=== PATIENT | female | born 2000 | race Two or more races ===

== ENCOUNTER 2024-05-08 17:42 | Outpatient (CLI) | payer SELFPAY ==
[2024-05-08] VITALS (7 sets, daily range): BP systolic 120–133; BP diastolic 69–80; PULSE 91–98
[2024-05-08 18:39] LABS: Basophils Percent Auto 0.3 % (0.2-1.2); Eosinophils Percent Auto 0.4 % (0-4.4); Hematocrit 34.1 % (37.0-47.0); Hemoglobin 11.6 g/dL (12.0-15.0); Immature Granulocyte Absolute 0.02 K/mm3 (0.00-0.031); Immature Granulocyte Percent A 0.3 % (0-0.5); Lymphocytes Absolute Auto 1.73 K/mm3 (0.9-3.2); Lymphocytes Percent Auto 25.2 % (18.3-44.2); Mean Corpuscular Hemoglobin 31.2 pg (26-34); Mean Corpuscular Volume 91.7 fl (80-100); Mean Platelet Volume 11.8 fl (7.4-10.4); Monocytes Absolute Auto 0.4 K/mm3 (0.1-0.6); Monocytes Percent Auto 5.8 % (2.6-8.5); Neutrophils Absolute Auto 4.7 K/mm3 (1.3-6.7); Platelet Count Result 177 k/mm3 (150-375); Red Blood Count 3.72 M/mm3 (4.2-5.4); Red Cell Distribution Width 13.5 % (11.5-14.5); White Blood Count 6.9 K/mm3 (4.5-10.0)
[2024-05-08 18:43] LABS: Add Urine Microscopic? YES; Appearance Urine Cloudy (Clear); Bacteria Urine Rare /hpf; Bilirubin Urine Negative (Negative); Blood Urine Negative (Negative); Color Urine Yellow (Yellow); Glucose Urine UA Negative (Negative); Ketones Urine 3+ mg/dL (Negative); Leukocyte Esterase Ur 2+ LEU/UL (Negative); Nitrate Urine Negative (Negative); Non Pathogenic Casts 0-2; Protein Urine Negative (Negative); RBC Urine 0-2 /hpf (0-2); Specific Grav Ur 1.011 (1.001-1.035); Squamous Epithelial Cell Urine Moderate /hpf (Few); WBC Urine 21-50 /hpf (0-3); pH Urine 6.5 (5.0-9.0)
[2024-05-08 18:52] LABS: Alanine Aminotransferase 23 U/L (6-35); Albumin Level 3.9 g/dL (3.5-5.1); Alkaline Phosphatase 112 U/L (38-126); Anion Gap 12 mmol/L (4-12); Aspartate Amino Transferase 29 U/L (14-36); Bilirubin,Total 0.5 mg/dL (0.2-1.3); Blood Urea Nitrogen 4 mg/dL (7-17); Calcium 9.2 mg/dL (8.4-10.2); Carbon Dioxide 17 mmol/L (22-30); Chloride 106 mmol/L (98-107); Creatinine Urine 61.9 mg/dL; Estimated Glomerular Filt Rate > 60; Glucose 81 mg/dL (65-110); Potassium 3.6 mmol/L (3.4-5.0); Sodium 135 mmol/L (137-145); Total Protein Urine Random 9 mg/dL; Ur Ttl Prot Creatinine Ratio 0.15 mg/mg (0-0.20); Uric Acid 3.5 mg/dL (2.5-7.5)
== END 2024-05-08 19:45 | disposition home or self-care (01) ==
LOC: ANHOBOP 17:50 → ANHLDR 20:31
PROVIDERS: PCP Obstetrics & Gynecology; Visit Provider Obstetrics & Gynecology
DX: O13.9 Gestational [pregnancy-induced] hypertension without significant proteinuria, unspecified trimester (principal); Z3A.00 Weeks of gestation of pregnancy not specified
CPT/HCPCS: 36415; 59025; 80053; 81001; 82570; 84156; 84550; 85025; 99199

== ENCOUNTER 2024-05-23 13:29 | Outpatient (RCR) | payer BC, SELFPAY ==
--- NOTE | ~2024-05-23 | US_ITS ---
EXAMINATION: US OB BPP wo non-stress DATE: 05/23/2024 14:54 INDICATION: Hypertension in . Third trimester. TECHNIQUE: Real-time pelvic ultrasound was performed. COMPARISON: None. FINDINGS: There is a single living fetus in vertex presentation. The placenta is on the left. heart rate is 137 beats per minute (bpm). The amniotic fluid index is 12.7 cm which is normal. Biophysical profile performed by the technologist: breathing (30 sec sustained breathing in 30 minutes): 2 out of 2 movement (3 gross body movements in 30 minutes): 2 out of 2 tone (one episode of wfifrir-sumncedqy-ohbclpj limb movement): 2 out of 2 Amniotic fluid pocket (2 cm): 2 out of 2 Total score: 8 out of 8 IMPRESSION: 1. Single living fetus in vertex presentation. 2. Biophysical profile 8 out of 8. Reviewed, dictated and finalized at location A. MASSAGE THERAPIST
[2024-05-23 14:09] LABS: Basophils Percent Auto 0.4 % (0.2-1.2); Eosinophils Percent Auto 0.4 % (0-4.4); Hematocrit 33.8 % (37.0-47.0); Hemoglobin 11.4 g/dL (12.0-15.0); Immature Granulocyte Absolute 0.02 K/mm3 (0.00-0.031); Immature Granulocyte Percent A 0.4 % (0-0.5); Lymphocytes Absolute Auto 1.11 K/mm3 (0.9-3.2); Lymphocytes Percent Auto 19.9 % (18.3-44.2); Mean Corpuscular HGB Conc 33.7 g/dl (32-36); Mean Corpuscular Hemoglobin 31.1 pg (26-34); Mean Corpuscular Volume 92.3 fl (80-100); Mean Platelet Volume 12.3 fl (7.4-10.4); Monocytes Absolute Auto 0.4 K/mm3 (0.1-0.6); Monocytes Percent Auto 6.3 % (2.6-8.5); Neutrophils Absolute Auto 4.1 K/mm3 (1.3-6.7); Neutrophils Percent Auto 72.6 % (45.5-73.1); Platelet Count Result 171 k/mm3 (150-375); Red Blood Count 3.66 M/mm3 (4.2-5.4); Red Cell Distribution Width 13.7 % (11.5-14.5); White Blood Count 5.6 K/mm3 (4.5-10.0)
[2024-05-23 14:20] LABS: Alanine Aminotransferase 20 U/L (6-35); Albumin Level 3.8 g/dL (3.5-5.1); Alkaline Phosphatase 147 U/L (38-126); Anion Gap 11 mmol/L (4-12); Aspartate Amino Transferase 26 U/L (14-36); Bilirubin,Total 0.6 mg/dL (0.2-1.3); Blood Urea Nitrogen 5 mg/dL (7-17); Calcium 9.4 mg/dL (8.4-10.2); Carbon Dioxide 21 mmol/L (22-30); Chloride 104 mmol/L (98-107); Estimated Glomerular Filt Rate > 60; Glucose 85 mg/dL (65-110); Potassium 3.7 mmol/L (3.4-5.0); Sodium 136 mmol/L (137-145); Uric Acid 4.2 mg/dL (2.5-7.5)
[2024-05-23 14:22] LABS: Add Urine Microscopic? YES; Appearance Urine Turbid (Clear); Bacteria Urine 4+ /hpf; Bilirubin Urine Negative (Negative); Blood Urine Non-Hemolyzed Trace (Negative); Color Urine Yellow (Yellow); Glucose Urine UA Negative (Negative); Ketones Urine Negative (Negative); Leukocyte Esterase Ur 3+ LEU/UL (Negative); Nitrate Urine Positive (Negative); Non Pathogenic Casts 0-2; Protein Urine 1+ mg/dL (Negative); Specific Grav Ur 1.015 (1.001-1.035); Squamous Epithelial Cell Urine Moderate /hpf (Few); WBC Urine >100 /hpf (0-3); pH Urine 6.5 (5.0-9.0)
[2024-05-23 14:28] LABS: Creatinine Urine 108.1 mg/dL; Total Protein Urine Random 52 mg/dL; Ur Ttl Prot Creatinine Ratio 0.48 mg/mg (0-0.20)
[2024-05-23 15:24] VITALS: BP 118/71; PULSE 98
== END 2024-06-15 07:46 | disposition home or self-care (01) ==
LOC: ANHOBOP 13:29
PROVIDERS: Visit Provider Obstetrics & Gynecology
DX: O13.9 Gestational [pregnancy-induced] hypertension without significant proteinuria, unspecified trimester (principal)
CPT/HCPCS: 36415; 59025; 76819; 80053; 81001; 82570; 84156; 84550; 85025

== ENCOUNTER 2024-05-25 10:01 | Outpatient (NON) | payer BC, SELFPAY ==
[2024-05-25 10:01] VITALS: BMI 33.2
[2024-05-25 10:38] LABS: Collection Time Urine 24 HOURS; Total Volume 24 Hour Urine 1900 ml
[2024-05-25 10:38] LABS: Total Volume 24 Hour Urine 1900 ml
[2024-05-25 10:45] LABS: Total Protein Urine 24 Hr 285 mg/24hr (28-141); Total Protein Urine Random 15 mg/dL
[2024-05-25 10:50] LABS: Creatinine Clearance Urine 219.1 ml/min (75-125); Patient Weight 170 Lbs; Serum Creat 0.45
== END 2024-05-25 10:02 | disposition home or self-care (01) ==
LOC: ANHOBOP 10:12
PROVIDERS: Visit Provider Obstetrics & Gynecology
DX: O13.9 Gestational [pregnancy-induced] hypertension without significant proteinuria, unspecified trimester (principal); Z3A.00 Weeks of gestation of pregnancy not specified
CPT/HCPCS: 81050; 82575; 84156

== ENCOUNTER 2024-05-30 02:00 | Inpatient (IN) | payer BC, SELFPAY ==
[2024-05-30] VITALS (243 sets, daily range): BP systolic 89–150; BP diastolic 34–131; PULSE 63–156; TEMP 36.6–38.8; O2SAT 83–100; BMI 28.4
[2024-05-30 02:33] LABS: Basophils Percent Auto 0.3 % (0.2-1.2); Eosinophils Percent Auto 0.7 % (0-4.4); Hematocrit 33.1 % (37.0-47.0); Hemoglobin 11.4 g/dL (12.0-15.0); Immature Granulocyte Absolute 0.01 K/mm3 (0.00-0.031); Immature Granulocyte Percent A 0.2 % (0-0.5); Lymphocytes Absolute Auto 1.93 K/mm3 (0.9-3.2); Lymphocytes Percent Auto 31.4 % (18.3-44.2); Mean Corpuscular HGB Conc 34.4 g/dl (32-36); Mean Corpuscular Hemoglobin 31.1 pg (26-34); Mean Corpuscular Volume 90.2 fl (80-100); Mean Platelet Volume 11.7 fl (7.4-10.4); Monocytes Absolute Auto 0.3 K/mm3 (0.1-0.6); Neutrophils Absolute Auto 3.8 K/mm3 (1.3-6.7); Neutrophils Percent Auto 62.4 % (45.5-73.1); Platelet Count Result 210 k/mm3 (150-375); Red Blood Count 3.67 M/mm3 (4.2-5.4); Red Cell Distribution Width 13.4 % (11.5-14.5); White Blood Count 6.1 K/mm3 (4.5-10.0)
[2024-05-30 02:45] LABS: Uric Acid 4.8 mg/dL (2.5-7.5)
[2024-05-30] MEDS: miSOPROStol 25 MCG TABLET 50 MCG BUCCAL (02:45)
--- NOTE | 2024-05-30 02:45 | LDADM ---
This patient, Jade Stewart, was admitted to Labor/Delivery/Recovery 107 on 05/30/24 at 02:00. Plans for labor, pain management and were discussed with patient. Patient/family oriented to hospital policies and general routines including ID bracelet, bed and alarms, visiting hours, pain management, procedures, bathroom and other care routines, personal items, smoking policy, room service/diet and guest tray routines, infant security routines, and visiting hours. Patient/Family are encouraged to report perceived risks to care and to ask questions if they do not understand what they are told or what they should do. See OBIX for further documentation.
[2024-05-30 03:00] LABS: Alanine Aminotransferase 35 U/L (6-35); Albumin Level 3.7 g/dL (3.5-5.1); Alkaline Phosphatase 160 U/L (38-126); Anion Gap 10 mmol/L (4-12); Aspartate Amino Transferase 36 U/L (14-36); Bilirubin,Total 0.6 mg/dL (0.2-1.3); Blood Urea Nitrogen 10 mg/dL (7-17); Calcium 8.9 mg/dL (8.4-10.2); Carbon Dioxide 18 mmol/L (22-30); Chloride 107 mmol/L (98-107); Estimated CRCL calculation 98 ml/min; Estimated Glomerular Filt Rate > 60; Glucose 104 mg/dL (65-110); Potassium 3.7 mmol/L (3.4-5.0); Sodium 135 mmol/L (137-145)
[2024-05-30 03:26] LABS: HIV 1/2 Ab P24 Ag Result Negative (Negative)
[2024-05-30 03:56] LABS: Rapid Plasma Reagin Non-Reactive (NonReactive)
[2024-05-30] MEDS: VANCOMYCIN 1,500 MG/NS 500 ML BAG 166 MG IVPB ×3 (04:45→21:14)
[2024-05-30] MEDS: diphenhydrAMINE HCl INJ 50 MG/ML VIAL 25 MG IV PUSH (04:45)
[2024-05-30] MEDS: OXYTOCIN 30 UNITS/NS 500 ML 30 UNITS/500 ML BAG 6 UNITS IV CONT (07:03)
[2024-05-30] MEDS: LACTATED RINGERS 1,000 ML 125 ML IV CONT ×4 (07:03→20:16)
--- NOTE | 2024-05-30 07:14 | PM.IMHP ---
H&P: HPI History of Present Illness Date/Time: 05/30/24 07:14 Chief Complaint: IOL Narrative: Jade is a 23yo who presented to routine care 05/29/24 and was found to have mild range BPs again; meeting criteria for GHTN. She denies symptoms of pre-eclampsia w/ severe features. She reports good movement. Her is complicated by: - Anemia; improved with oral iron - GBS positive, severe PCN allergy, on vanco - GHTN Review of Systems Constitutional: Constitutional: Denies chills, Denies fever(s) and Denies headache(s) Eyes: Eyes: Denies change in vision ENT: Denies headache(s) Cardiovascular: Cardiovascular: Denies chest pain and Denies dyspnea Respiratory: Respiratory: Denies dyspnea Genitourinary: Genitourinary: Denies abnormal vaginal bleeding and Denies vaginal discharge Neurologic: Denies headache(s) Psychiatric: Psychiatric: Denies anxiety and Denies depression [facility] Past Medical History Medical History Suppression of menses Social History Social History Smoking status: Former smoker Tobacco type: cigarettes and e-cigarettes/vaping Smokeless tobacco user: other Smoking end date: 07/17/23 Alcohol intake: never Substance use: never Substance use type: does not use Do You Feel Safe in your Home?: Yes Lack of Transportation: No Lack of Food: Never True Current Housing: I Have Housing Concerned About Future Housing: No Difficulty Paying Gas/Electric Bills: No Difficulty Paying for Meds: No Currently Unemployed: No Education: Associate Degree Difficulty w/ Childcare or Family Care: No Living arrangements: with family Gender identity (if verbalized by the patient): Female Sexual Orientation (if Verbalized by the Patient): Straight or Heterosexual Spiritual care concerns: Yes Meds Home Medications and Allergies Home Medications ?Medication ?Instructions ?Recorded ?Confirmed ?Type vits no.126-ferrous fum 1 tablet PO DAILY 10/26/23 05/29/24 History 28 mg iron-folic acid 800 mcg tablet (Classic ) ferrous sulfate 325 mg (65 mg 325 mg PO DAILY 03/27/24 05/29/24 History iron) tablet (Feosol) Allergies Allergy/AdvReac Type Severity Reaction Status Date / Time Penicillins Allergy Mild Hives Verified 05/29/24 16:52 Vital Signs Vital Signs - 24 hr 05/30/24 02:21 05/30/24 02:44 05/30/24 02:46 Temperature Pulse Rate 119 H 113 H Blood Pressure 138/83 128/73 Pulse Oximetry Oxygen Delivery Room Air 05/30/24 03:01 05/30/24 03:04 05/30/24 03:16 Temperature 98.3 F Pulse Rate 111 H 99 Blood Pressure 118/70 118/72 Pulse Oximetry Oxygen Delivery 05/30/24 03:31 05/30/24 03:46 05/30/24 04:16 Temperature Pulse Rate 94 95 96 Blood Pressure 121/77 122/67 111/61 Pulse Oximetry Oxygen Delivery 05/30/24 04:31 05/30/24 04:33 05/30/24 04:46 Temperature 99 F Pulse Rate 102 H 108 H Blood Pressure 114/58 L 118/62 Pulse Oximetry Oxygen Delivery 05/30/24 05:01 05/30/24 05:06 05/30/24 05:11 Temperature Pulse Rate 94 Blood Pressure 121/72 Pulse Oximetry 99 100 99 Oxygen Delivery 05/30/24 05:16 05/30/24 05:21 05/30/24 05:26 Temperature Pulse Rate Blood Pressure Pulse Oximetry 98 98 98 Oxygen Delivery 05/30/24 05:31 05/30/24 05:36 05/30/24 05:41 Temperature 98.3 F Pulse Rate 87 Blood Pressure 122/81 Pulse Oximetry 99 99 100 Oxygen Delivery 05/30/24 05:46 05/30/24 05:51 05/30/24 05:56 Temperature Pulse Rate Blood Pressure Pulse Oximetry 100 100 100 Oxygen Delivery 05/30/24 06:01 05/30/24 06:06 05/30/24 06:11 Temperature Pulse Rate 84 Blood Pressure 122/70 Pulse Oximetry 100 100 100 Oxygen Delivery Exam Const: General: cooperative, no acute distress and obese Nutritional Appearance: obese Orientation/consciousness: patient oriented x3 Resp: Effort & Inspection: normal respiratory effort Cardio: Rate: regular rate GI: GI Palp: No abdominal tenderness : Other: FHT's: 130's/ mod trupti/ + accels/ no decels - cat 1 TOCO: ctxs q2-3min Cervix: 60/-2 Membranes: AROM, clear 0730 Presentation: cephalic Skin: General skin exam: normal color Neuro: General: patient oriented x3 Extrem: General: normal to inspection Psych: Appearance: grossly normal Affect: normal affect Attitude: cooperative H&P: Results Labs Labs: Short CBC 05/30/24 Range/Units 02:26 WBC 6.1 (4.5-10.0) K/mm3 Hgb 11.4 L (12.0-15.0) g/dL Hct 33.1 L (37.0-47.0) % Plt Count 210 (150-375) k/mm3 BMP 05/30/24 02:26 Sodium 135 L Potassium 3.7 Chloride 107 Carbon Dioxide 18 L BUN 10 D Creatinine 0.70 Glucose 104 Calcium 8.9 Liver Function 05/30/24 Range/Units 02:26 Total Bilirubin 0.6 (0.2-1.3) mg/dL AST 36 (14-36) U/L ALT 35 (6-35) U/L Alkaline Phosphatase 160 H (38-126) U/L Albumin 3.7 (3.5-5.1) g/dL Assessment and Plan Assessment and plan (1) Gestational hypertension affecting first : Code(s): O13.9 - Gestational [-induced] hypertension without significant proteinuria, unspecified trimester Status: Acute Plan - Admitted overnight for medical IOL - s/p cytotec 50mcg x1 - Low dose pitocin per protocol - Continuous monitoring - Vanco 20mg/kg q8h - Anesthesia consult PRN pain
--- NOTE | 2024-05-30 08:06 | P.PNAN_ITS ---
Anes - Eval Pre Procedure Procedure: labor epidural Date/Time: 05/30/24 08:06 Preop Diagnosis: pain during labor Pre Op Diagnosis: IOL Patient Data Age: 23 Gender: F Height: 1.58 m Weight: 70.9 kg Last Vital Signs Temp 36.7 C 05/30/24 07:08 Pulse 102 H 05/30/24 08:01 BP 127/84 05/30/24 08:01 Pulse Ox 100 05/30/24 06:11 O2 Del Method Room Air 05/30/24 02:44 Allergies Allergy/AdvReac Type Severity Reaction Status Date / Time Penicillins Allergy Mild Hives Verified 05/29/24 16:52 Home Medications ?Medication ?Instructions ?Recorded ?Confirmed ?Type vits no.126-ferrous fum 1 tablet PO DAILY 10/26/23 05/29/24 History 28 mg iron-folic acid 800 mcg tablet (Classic ) ferrous sulfate 325 mg (65 mg 325 mg PO DAILY 03/27/24 05/29/24 History iron) tablet (Feosol) Laboratory Tests 05/30/24 02:26 WBC 6.1 K/mm3 (4.5-10.0) RBC 3.67 L M/mm3 (4.2-5.4) Hgb 11.4 L g/dL (12.0-15.0) Hct 33.1 L % (37.0-47.0) MCV 90.2 fl (80-100) MCH 31.1 pg (26-34) MCHC 34.4 g/dl (32-36) RDW 13.4 % (11.5-14.5) Plt Count 210 k/mm3 (150-375) MPV 11.7 H fl (7.4-10.4) Immature Gran % (Auto) 0.2 % (0-0.5) Neut % (Auto) 62.4 % (45.5-73.1) Lymph % (Auto) 31.4 % (18.3-44.2) [place] % (Auto) 5.0 % (2.6-8.5) Eos % (Auto) 0.7 % (0-4.4) Baso % (Auto) 0.3 % (0.2-1.2) Lymph # (Auto) 1.93 K/mm3 (0.9-3.2) [place] # (Auto) 0.3 K/mm3 (0.1-0.6) Eos # (Auto) 0.0 K/mm3 (0-0.3) Baso # (Auto) 0.0 K/mm3 (0.0-0.1) Abs Immat Gran (auto) 0.01 K/mm3 (0.00-0.031) Absolute Neuts (auto) 3.8 K/mm3 (1.3-6.7) Absolute Nucleated RBC 0.000 K/mm3 (0.0-0.012) Nucleated RBC % 0.0 % (0.0-0.2) Sodium 135 L mmol/L (137-145) Potassium 3.7 mmol/L (3.4-5.0) Chloride 107 mmol/L (98-107) Carbon Dioxide 18 L mmol/L (22-30) Anion Gap 10 mmol/L (4-12) BUN 10 D mg/dL (7-17) Creatinine 0.70 mg/dL (0.7-1.0) Estim Creat Clear Calc 98 ml/min Estimated GFR > 60 (59 - ) Glucose 104 mg/dL (65-110) Uric Acid 4.8 mg/dL (2.5-7.5) Calcium 8.9 mg/dL (8.4-10.2) Total Bilirubin 0.6 mg/dL (0.2-1.3) AST 36 U/L (14-36) ALT 35 U/L (6-35) Alkaline Phosphatase 160 H U/L (38-126) Total Protein 7.0 g/dL (6.3-8.2) Albumin 3.7 g/dL (3.5-5.1) RPR Non-reactive (NonReactive) HIV 1&2 Ab/P24 Ag 4thGn Negative (Negative) Blood Type A Positive Antibody Screen Negative Patient hx anesthesia problems: none Family hx anesthesia problems: none Results Review: All pre-operative results and documents have been reviewed as part of the pre- operative evaluation. FORMERLY [facility], [facility] Past Medical History Medical History (Updated 05/30/24 @ 08:07 by Margie Reeder CRNA) IUP (intrauterine ), incidental Obesity Suppression of menses Social History Social History Smoking status: Former smoker Tobacco type: cigarettes and e-cigarettes/vaping Smokeless tobacco user: other Smoking end date: 07/17/23 Alcohol intake: never Substance use: never Substance use type: does not use Do You Feel Safe in your Home?: Yes Lack of Transportation: No Lack of Food: Never True Current Housing: I Have Housing Concerned About Future Housing: No Difficulty Paying Gas/Electric Bills: No Difficulty Paying for Meds: No Currently Unemployed: No Education: Associate Degree Difficulty w/ Childcare or Family Care: No Living arrangements: with family Gender identity (if verbalized by the patient): Female Sexual Orientation (if Verbalized by the Patient): Straight or Heterosexual Spiritual care concerns: Yes Exam Day of Procedure 05/30/24 08:06
[2024-05-30] MEDS: fentaNYL CITRATE INJ (*CRX) 100 MCG/2 ML VIAL IV PUSH (08:44)
--- NOTE | 2024-05-30 12:24 | PM.OBPNLAB ---
Pain Control Date/time seen: 05/30/24 12:24 Pain control: epidural Pelvic Exam Dilation (cm): 4 (.5) Effacement (%): 80 station: -2 Amniotic membrane status: Ruptured Contractions Monitor mode: Internal Contraction frequency: 2 (-3) Contraction pattern: Regular Status status: Category l Assessment and Plan Pitocin rate (mU/min): 2 Assessment: induction ongoing Plan: continuous present management Comments: - IUPC placed on this exam - continue pitocin augmentation - continue vanco for GBS - BPs normal to moderate range
[2024-05-30] MEDS: ONDANSETRON INJ 4 MG/2 ML VIAL IV PUSH (16:58)
[2024-05-30] MEDS: ACETAMINOPHEN 500 MG TABLET 1000 MG PO (17:16)
[2024-05-30] MEDS: GENTAMICIN SULFATE INJ 355 MG in DEXTROSE 5% 100 ML 100 MG IVPB (17:21)
[2024-05-30] MEDS: diphenhydrAMINE HCl INJ 50 MG/ML VIAL IV PUSH (17:28)
--- NOTE | 2024-05-30 17:29 | PM.OBPNLAB ---
Pain Control Date/time seen: 05/30/24 17:29 Pain control: epidural Comments: 102 temp Pelvic Exam Dilation (cm): 7 Effacement (%): 80 station: -2 Amniotic membrane status: Ruptured Contractions Monitor mode: Internal Contraction frequency: 2 (-3) Contraction pattern: Regular Status status: Category ll Assessment and Plan Pitocin rate (mU/min): 16 Assessment: active labor Comments: - Pt has 102 F temp and tachycardia; chorio - continue vanco 20mg/kg q8h, will start gentamicin 5mg/kg q24h - tylenol 1000mg PO once - fluid bolus 500cc - continue pitocin per protocol - UOP adequate - cervix edematous; will give benadryl 50mg
[2024-05-30] MEDS: CLINDAMYCIN 900 MG/D5W 50 ML 900 MG/50 ML PIGGYBACK 50 MG IVPB (19:11)
[2024-05-30 20:03] LABS: Basophils Percent Auto 0.2 % (0.2-1.2); Hematocrit 36.6 % (37.0-47.0); Hemoglobin 12.5 g/dL (12.0-15.0); Immature Granulocyte Absolute 0.06 K/mm3 (0.00-0.031); Immature Granulocyte Percent A 0.5 % (0-0.5); Lymphocytes Absolute Auto 1.04 K/mm3 (0.9-3.2); Lymphocytes Percent Auto 8.2 % (18.3-44.2); Mean Corpuscular HGB Conc 34.2 g/dl (32-36); Mean Corpuscular Volume 90.8 fl (80-100); Monocytes Absolute Auto 0.7 K/mm3 (0.1-0.6); Monocytes Percent Auto 5.2 % (2.6-8.5); Neutrophils Absolute Auto 10.9 K/mm3 (1.3-6.7); Neutrophils Percent Auto 85.9 % (45.5-73.1); Platelet Count Result 177 k/mm3 (150-375); Red Blood Count 4.03 M/mm3 (4.2-5.4); Red Cell Distribution Width 13.6 % (11.5-14.5); White Blood Count 12.7 K/mm3 (4.5-10.0)
[2024-05-30 20:13] LABS: Alanine Aminotransferase 45 U/L (6-35); Albumin Level 3.6 g/dL (3.5-5.1); Alkaline Phosphatase 170 U/L (38-126); Anion Gap 14 mmol/L (4-12); Aspartate Amino Transferase 48 U/L (14-36); Bilirubin,Total 0.9 mg/dL (0.2-1.3); Blood Urea Nitrogen 10 mg/dL (7-17); Calcium 9.1 mg/dL (8.4-10.2); Carbon Dioxide 14 mmol/L (22-30); Chloride 107 mmol/L (98-107); Estimated CRCL calculation 70 ml/min; Estimated CRCL calculation 72 ml/min; Estimated Glomerular Filt Rate > 60; Glucose 88 mg/dL (65-110); Potassium 3.8 mmol/L (3.4-5.0); Sodium 135 mmol/L (137-145)
[2024-05-30 20:38] LABS: Influenza A QL RT-PCR Negative (Negative); Influenza B QL RT-PCR Negative (Negative); RSV RNA, RT-PCR Negative (Negative); SARS-CoV-2 RNA PCR Negative (Negative)
--- NOTE | 2024-05-30 20:47 | PM.OBPNLAB ---
Pain Control Date/time seen: 05/30/24 20:47 Pain control: epidural Pelvic Exam Dilation (cm): 9 Effacement (%): 80 station: -1 Amniotic membrane status: Ruptured Contractions Monitor mode: Internal Contraction frequency: 2 (-4) Contraction pattern: Regular Status status: Category l Assessment and Plan Pitocin rate (mU/min): 0 Assessment: active labor Comments: - pt has been having tachycardia due to maternal fever - s/p gentamicin 5mg/kg + continuing vancomycin 20mg/kg q8h -- clindamycin 900mg was added as maternal temp/ tachy was not improving - fluid bolus given; urine output >100cc/hr - but maternal temp is now normal and FHTs category 1 (150's/mod trupti/ + accels/ no decels) - labs repeated; mild elevation in LFTs, Cr 1.0, WBC 12.7, maternal temp <100F - urine culture sent - covid/flu/rsv negative - will restart pitocin as she has been 9cm for the last 2 hours (contractions not adequate)
[2024-05-31] VITALS (92 sets, daily range): BP systolic 81–201; BP diastolic 36–149; PULSE 62–172; RESP 16–18; TEMP 36.5–37.9; O2SAT 77–100
[2024-05-31] MEDS: LACTATED RINGERS 1,000 ML 125 ML IV CONT (03:53)
--- NOTE | 2024-05-31 05:51 | P.PCNOB_ITS ---
OB - Vaginal Delivery Note Procedure Delivery date: 05/31/24 Events: Gestational Hypertension and Positive Group B Strep (GBS) Intrapartal Events: Chorioamnionitis Induction method: Per Misoprostol Protocol (x1) Delivery augmentation: Rupture of Membranes and Pitocin Delivery monitor: External FHT and Internal Uterine Route of delivery: vacuum extraction Indication for instrumentation: maternal exhaustion Episiotomy description: None Laceration Description: Periurethral (bilateral) Delivery repair: vicryl Specimen: Yes (placenta) Quantitative Blood Loss (ml): 450 Anesthesia type: Epidural Disposition: Floor Complications: No immediate complications Baby Date of : 05/31/24 Time of : 05:28 Gestational Age by Date: 39 (.1) gender: Female Weight (pounds): 7 Weight (ounces): 8 presentation: vertex Placenta delivery description: Expressed Cord Vessel Description: 3 Vessels and Clamped/Cut score one minute: 3 score five minutes: 9 Narrative: Miar progressed to complete dilation and began pushing. Her labor course was complicated by protracted labor and chorioamnionitis with a period of tachycardia. She pushed for approximately 2 hours and was exhausted. She felt a s if she could no longer push and therefore I discussed kiwi vacuum placement and she agreed. The skirt trimmer and pediatric nurses were present for delivery. I then placed the vacuum without complication. Once her contraction started I then applied suction to the Kiwi vacuum. With good maternal effort she pushed and I had 1 pull (with no pop offs) and good descensus was noted. With the 2nd push and pull on the vacuum (no pop offs) she then delivered the head over intact perineum. The vacuum was released, no nuchal cord was palpated. She easily delivered the 's shoulders and body without complication and thick meconium was then noted. The infant was immediately placed on the maternal abdomen and the umbilical cord was doubly clamped and cut and the was handed off to the awaiting pediatric team. They provided breathing support and after approximately 1/2-2 minutes, cry was then heard. A segment of the cord was collected for cord gases. The remaining cord blood was collected for typing. With Pitocin running and gentle downward traction on the cord, the placenta delivered without complication. Bimanual massage was performed and good uterine tone with minimal bleeding was noted. She was examined and found to have bilateral periurethral lacerations that were bleeding. The lacerations were repaired using 3-0 Vicryl in a locking fashion for good hemostasis. Penitentiary through the laceration repair she did endorse pain therefore she was then anesthetized with 1% lidocaine plain, approximately 10 cc was used. The lacerations were reapproximated well. Good hemostasis was noted. She will continue no Pitocin as well as all 3 antibiotics for an additional 24 hours post delivery.
[2024-05-31] MEDS: OXYTOCIN 30 UNITS/NS 500 ML 30 UNITS/500 ML BAG 125 UNITS IV CONT (05:53)
[2024-05-31] MEDS: CLINDAMYCIN 900 MG/D5W 50 ML 900 MG/50 ML PIGGYBACK 50 MG IVPB ×3 (06:08→21:58)
[2024-05-31 06:58] LABS: Vancomycin Trough 38.4 ug/mL (10.0-20.0)
[2024-05-31] MEDS: IBUPROFEN 600 MG TABLET PO (07:10)
[2024-05-31] MEDS: LIDOCAINE 1% LOCAL INJ 20 ML VIAL (07:10)
[2024-05-31] MEDS: WITCH HAZEL 40 PADS 1 PAD TOPICAL (07:12)
[2024-05-31] MEDS: BENZOCAINE 20% AER SPR (*SP) 56 GM CAN 1 SPRAY TOPICAL (07:12)
--- NOTE | 2024-05-31 10:00 | PC.NURSE ---
Introductions were made, then consulted with patient to assess needs related to . Discussed with grandmother, who is translating for her, that mother plans to breast and bottle feed?her infant. She had just fed baby a formula bottle per her choice and will call with her next feeding. Resources provided for inpatient and outpatient services with the feeding sheet, mom/baby guide and name written on the communication board. Mother voiced understanding of information and will call if there is a request for assistance. Reported to the Primary RN.
[2024-05-31 12:04] LABS: Basophils Percent Auto 0.1 % (0.2-1.2); Hematocrit 33.4 % (37.0-47.0); Hemoglobin 11.1 g/dL (12.0-15.0); Immature Granulocyte Absolute 0.12 K/mm3 (0.00-0.031); Immature Granulocyte Percent A 0.7 % (0-0.5); Lymphocytes Absolute Auto 1.28 K/mm3 (0.9-3.2); Lymphocytes Percent Auto 7.1 % (18.3-44.2); Mean Corpuscular HGB Conc 33.2 g/dl (32-36); Mean Corpuscular Hemoglobin 30.6 pg (26-34); Mean Platelet Volume 12.1 fl (7.4-10.4); Monocytes Absolute Auto 0.5 K/mm3 (0.1-0.6); Monocytes Percent Auto 2.6 % (2.6-8.5); Neutrophils Absolute Auto 16.1 K/mm3 (1.3-6.7); Neutrophils Percent Auto 89.5 % (45.5-73.1); Platelet Count Result 189 k/mm3 (150-375); Red Blood Count 3.63 M/mm3 (4.2-5.4); Red Cell Distribution Width 13.5 % (11.5-14.5)
[2024-05-31 12:09] LABS: Alanine Aminotransferase 39 U/L (6-35); Alkaline Phosphatase 142 U/L (38-126); Anion Gap 10 mmol/L (4-12); Aspartate Amino Transferase 62 U/L (14-36); Bilirubin,Total 0.9 mg/dL (0.2-1.3); Blood Urea Nitrogen 15 mg/dL (7-17); Calcium 8.8 mg/dL (8.4-10.2); Carbon Dioxide 16 mmol/L (22-30); Chloride 105 mmol/L (98-107); Estimated CRCL calculation 43 ml/min; Estimated Glomerular Filt Rate 37; Glucose 121 mg/dL (65-110); Potassium 3.3 mmol/L (3.4-5.0); Sodium 131 mmol/L (137-145)
[2024-05-31] MEDS: SODIUM CHLORIDE 0.9% IV 1,000 ML 125 ML IV CONT ×2 (13:42→22:04)
[2024-05-31] MEDS: MULTIVIT/MIN/PREN/FOL AC/IRON TABLET 1 TAB PO (13:42)
[2024-05-31] MEDS: DOCUSATE SODIUM 100 MG CAPSULE PO ×2 (13:42→17:00)
--- NOTE | 2024-05-31 13:52 | OBPPTRN ---
Patient transferred to post room #284 via (wheelchair). Support person present. Oriented to unit, room, information board, rooming in, admission packet and security measures. Patient verbalizes understanding.
--- NOTE | 2024-05-31 16:45 | PC.NURSE ---
Patient has been very sleepy today and is on antibiotics for chorio. Baby was transferred to level 2 nursery for subgaleal hemorrhage. Patient can go down to breastfeed at the next feeding if desired. Due to patient condition, pumping not yet initiated. If patient does not go down to breastfeed baby we will start her pumping to support her milk supply.
--- NOTE | 2024-05-31 17:24 | PC.NURSE ---
Dr. Molina called at 1710 regarding update on patient. Patient's urine output has been adequate. Vaginal bleeding at minimum. Dr. Molina would like to be informed if urine output is less than 35mL/hr. Lab work ordered for in the AM. Will pass this information on to oncoming night nurse.
--- NOTE | 2024-05-31 18:45 | PC.NURSE ---
PT AMBULATED DOWN TO NURSERY WITH TO FEED BABY.
[2024-06-01] VITALS (7 sets, daily range): BP systolic 112–130; BP diastolic 63–75; PULSE 90–109; RESP 16–18; TEMP 36.6–37; O2SAT 99–100
[2024-06-01 05:27] LABS: Basophils Percent Auto 0.2 % (0.2-1.2); Eosinophils Absolute Auto 0.1 K/mm3 (0-0.3); Eosinophils Percent Auto 0.6 % (0-4.4); Hematocrit 28.4 % (37.0-47.0); Hemoglobin 9.8 g/dL (12.0-15.0); Immature Granulocyte Percent A 0.7 % (0-0.5); Lymphocytes Absolute Auto 1.77 K/mm3 (0.9-3.2); Lymphocytes Percent Auto 12.9 % (18.3-44.2); Mean Corpuscular HGB Conc 34.5 g/dl (32-36); Mean Corpuscular Hemoglobin 31.4 pg (26-34); Mean Platelet Volume 12.8 fl (7.4-10.4); Monocytes Absolute Auto 0.6 K/mm3 (0.1-0.6); Monocytes Percent Auto 4.4 % (2.6-8.5); Neutrophils Absolute Auto 11.1 K/mm3 (1.3-6.7); Neutrophils Percent Auto 81.2 % (45.5-73.1); Platelet Count Result 190 k/mm3 (150-375); Red Blood Count 3.12 M/mm3 (4.2-5.4); Red Cell Distribution Width 13.7 % (11.5-14.5); White Blood Count 13.7 K/mm3 (4.5-10.0)
[2024-06-01 05:40] LABS: Alanine Aminotransferase 31 U/L (6-35); Albumin Level 2.6 g/dL (3.5-5.1); Alkaline Phosphatase 118 U/L (38-126); Anion Gap 11 mmol/L (4-12); Aspartate Amino Transferase 41 U/L (14-36); Bilirubin,Total 0.4 mg/dL (0.2-1.3); Blood Urea Nitrogen 16 mg/dL (7-17); Calcium 8.6 mg/dL (8.4-10.2); Carbon Dioxide 16 mmol/L (22-30); Chloride 107 mmol/L (98-107); Estimated CRCL calculation 53 ml/min; Estimated Glomerular Filt Rate 48; Glucose 98 mg/dL (65-110); Potassium 3.5 mmol/L (3.4-5.0); Sodium 134 mmol/L (137-145)
[2024-06-01] MEDS: CLINDAMYCIN 900 MG/D5W 50 ML 900 MG/50 ML PIGGYBACK 50 MG IVPB (06:18)
[2024-06-01] MEDS: DOCUSATE SODIUM 100 MG CAPSULE PO (08:48)
[2024-06-01] MEDS: MULTIVIT/MIN/PREN/FOL AC/IRON TABLET 1 TAB PO (08:48)
--- NOTE | 2024-06-01 09:21 | P.PNOB_ITS ---
OB - PN: Subj Subjective Date/time seen: 06/01/24 09:21 Narrative: PPD#1 Jade reports doing better today. 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 Her pain is controlled. She is tolerating regular diet, voiding, passing gas, and ambulating without issues. She is _ feeding. She has not had any fevers. OB - PN: Obj Data Labs 06/01/24 03:29 06/01/24 03:29 Labs: Laboratory Results - last 24 hr 05/31/24 05/31/24 06/01/24 11:29 11:30 03:29 WBC 18.0 H 13.7 H RBC 3.63 L 3.12 L Hgb 11.1 L 9.8 L Hct 33.4 L 28.4 L MCV 92.0 91.0 MCH 30.6 31.4 MCHC 33.2 34.5 RDW 13.5 13.7 Plt Count 189 190 MPV 12.1 H 12.8 H Immature Gran % (Auto) 0.7 H 0.7 H Neut % (Auto) 89.5 H 81.2 H Lymph % (Auto) 7.1 L 12.9 L [place] % (Auto) 2.6 4.4 Eos % (Auto) 0.0 0.6 Baso % (Auto) 0.1 L 0.2 Lymph # (Auto) 1.28 1.77 [place] # (Auto) 0.5 0.6 Eos # (Auto) 0.0 0.1 Baso # (Auto) 0.0 0.0 Abs Immat Gran (auto) 0.12 H 0.10 H Absolute Neuts (auto) 16.1 H 11.1 H Absolute Nucleated RBC 0.000 0.000 Nucleated RBC % 0.0 0.0 Sodium 131 L 134 L Potassium 3.3 L 3.5 Chloride 105 107 Carbon Dioxide 16 L 16 L Anion Gap 10 11 BUN 15 D 16 Creatinine 1.69 H 1.34 H Estim Creat Clear Calc 43 53 Estimated GFR 37 L 48 L Glucose 121 H 98 Calcium 8.8 8.6 Total Bilirubin 0.9 0.4 AST 62 H 41 H ALT 39 H 31 Alkaline Phosphatase 142 H 118 Total Protein 6.0 L 6.0 L Albumin 3.0 L 2.6 L OB - PN A/P Assessment and Plan (1) Status post vacuum-assisted vaginal delivery: Code(s): Z87.59 - Personal history of other complications of , childbirth and the puerperium Status: Acute (2) Chorioamnionitis: Qualifiers: Fetus number: single or unspecified fetus Trimester: third trimester Q ualified Code(s): O41.1230 - Chorioamnionitis, third trimester, not applicable or unspecified Code(s): O41.1290 - Chorioamnionitis, unspecified trimester, not applicable or unspecified Status: Acute (3) RADHA (acute kidney injury): Code(s): N17.9 - Acute kidney failure, unspecified Status: Acute Plan day: 1 Plan: routine care Comments: - PO pain meds - Regular diet - Ambulation and hydration encouraged - GHTN vs PEC: BPs normal, LFT down trending - Chorio:s/p antibiotics in labor; held PP due to RADHA and elevated trough levels, afebrile, WBC downtrending; - RADHA: improving; s/p IVF PP, UOP has been adequate, hold ibuprofen Time Spent With Patient Time: Total time spent is greater than 50% in coordination of care (as documented) at patient's floor/unit and/or counseling patient: Review of Systems 2 Constitutional: Constitutional: Denies chills, Denies fever(s) and Denies headache(s) Eyes: Eyes: Denies change in vision ENT: Denies dizziness and Denies headache(s) Cardiovascular: Cardiovascular: Denies chest pain, Denies palpitations and Denies dyspnea Respiratory: Respiratory: Denies cough and Denies dyspnea Gastrointestinal: Gastrointestinal: Denies nausea and Denies vomiting Neurologic: Denies dizziness and Denies headache(s) Endocrine: Endocrine: Denies palpitations Exam 2 Const: General: cooperative, comfortable and no acute distress O rientation/consciousness: patient oriented x3 Resp: Effort & Inspection: normal respiratory effort Auscultation: clear to auscultation bilaterally Cardio: Rate: regular rate GI: Inspection: non-distended GI Palp: No abdominal tenderness and Yes Soft to palpation Auscultation: normal bowel sounds : Other: fundus firm Skin: General skin exam: normal color Neuro: General: patient oriented x3 Extrem: General: normal to inspection Psych: Appearance: grossly normal Affect: normal affect Attitude: c ooperative
--- NOTE | 2024-06-01 16:50 | WPDANLDPN2 ---
Anes-Prog Note L&D Date/Time: 06/01/24 16:50 Comfortable throughout: labor and delivery Neuraxial method: epidural Epidural/Spinal procedure site: clean & non-tender Neuro status: Neuro function grossly intact. Cardiovascular status: normal Respiratory status: normal Airway patency: baseline Mental status: baseline Post-Op hydration status: normal Vital Signs: Last Vital Signs Temp 36.8 C 06/01/24 15:40 Pulse 109 H 06/01/24 15:40 Resp 16 06/01/24 15:40 BP 112/63 06/01/24 15:40 Pulse Ox 100 06/01/24 15:40 O2 Del Method Room Air 05/31/24 20:10 Pain score (VAS): 4 I/O: Intake & Output 06/01/24 06/01/24 06/01/24 07:59 15:59 23:59 Intake Total 300 770 Output Total 1550 1600 Balance -1250 -830 Post-procedural complaints: none Patient feedback: Patient satisfied with anesthetic care.
--- NOTE | 2024-06-01 18:00 | PC.NURSE ---
0755 Introductions were made, then consulted with patient to assess needs related to . Her interprets for her. Discussed with mother her?plans to feed?her and the?experience so far. Baby had just came up from the Level II Nursery and mother was going to breastfeed, this RN offered to assist her and she declined, said her mother would help her latch baby and would call if she needed help. RN talked with mother and advised her if baby wasn't effectively feeding at the breast that she should start using the breast pump after feedings to help protect her milk supply since baby had only been at the breast 2-3x. Mother agreed to that plan. Resources provided for inpatient and outpatient services with the feeding sheet, mom/baby guide and name written on the communication board. Mother voiced understanding of information and will call if there is a request for assistance. Reported to the Primary RN. 0900 RN checked back in with mother, her interprets for her, she had fed baby at the breast for 10 mins and felt like baby fed well, she felt tugging and pulling when baby was latched and did not have any nipple pain. Mother had also supplemented baby after the feeding with a formula bottle. Mother would like to see how the next feeding goes. 1300 RN checked in with mother, her interprets for her, her last was only 5 mins in duration and she would like to begin using the breast pump but wants to shower first. Mother does not have her own pump yet, RN will get her an insurance pump to use while here and take home. Mother to call out when she is ready to be set up with the breast pump. 1430 RN had not heard from mother so she checked in, mother is now ready. Insurance breast pump ([employer]) provided due to ineffective feeding, also mother would like to supplement with pumped breast milk instead of formula if she can. Her interprets for her and instructions given on cleaning, care, usage, that there should be no pain, pumping schedule for milk production, collection, and storage of human milk. Patient was assessed for correct placement, flange size (both nipples measured 20mm, using size 24 flange), to pump for comfort and nipple stretching/stimulation for adequate milk production, pump after for 10-15 mins, and if infant does not go to the breast then use pump every 3 hours (8 times in 24 hours) 1-2 times at night. Parents are encouraged to record the pumping schedule on the feeding sheet.?Mother voiced understanding of the education shared along with mom/baby guide and the pump measurement, flange fit handout for additional resource information. Reported to the Primary RN.
[2024-06-02 04:00] VITALS: BP 128/78
[2024-06-02 06:12] LABS: Hemoglobin 10.3 g/dL (12.0-15.0); Mean Corpuscular HGB Conc 33.2 g/dl (32-36); Mean Corpuscular Hemoglobin 30.9 pg (26-34); Mean Corpuscular Volume 93.1 fl (80-100); Mean Platelet Volume 12.5 fl (7.4-10.4); Platelet Count Result 195 k/mm3 (150-375); Red Blood Count 3.33 M/mm3 (4.2-5.4); Red Cell Distribution Width 13.9 % (11.5-14.5)
[2024-06-02 06:29] LABS: Alanine Aminotransferase 28 U/L (6-35); Alkaline Phosphatase 104 U/L (38-126); Anion Gap 8 mmol/L (4-12); Aspartate Amino Transferase 33 U/L (14-36); Bilirubin,Total 0.4 mg/dL (0.2-1.3); Blood Urea Nitrogen 21 mg/dL (7-17); Calcium 8.5 mg/dL (8.4-10.2); Carbon Dioxide 19 mmol/L (22-30); Chloride 109 mmol/L (98-107); Estimated CRCL calculation 60 ml/min; Estimated Glomerular Filt Rate 56; Glucose 88 mg/dL (65-110); Potassium 3.6 mmol/L (3.4-5.0); Sodium 136 mmol/L (137-145)
[2024-06-02 08:50] VITALS: BP 123/79; PULSE 68; RESP 16; TEMP 36.5; O2SAT 99
--- NOTE | 2024-06-02 09:11 | PM.OBPNVD ---
OB - PN: Subj Subjective Date/time seen: 06/02/24 09:11 Narrative: PPD#2 Jade reports doing well today. 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 Her pain is controlled. She is tolerating regular diet, voiding, passing gas, and ambulating without issues. She is breast feeding. Aundrea is wanting to watch her daughter for another 24 hours, so she will go to no-care bed. OB - PN: Obj Data Labs 06/02/24 04:23 06/02/24 04:23 Labs: Laboratory Results - last 24 hr 06/02/24 04:23 WBC 12.0 H RBC 3.33 L Hgb 10.3 L Hct 31.0 L MCV 93.1 MCH 30.9 MCHC 33.2 RDW 13.9 Plt Count 195 MPV 12.5 H Sodium 136 L Potassium 3.6 Chloride 109 H Carbon Dioxide 19 L Anion Gap 8 BUN 21 H Creatinine 1.18 H Estim Creat Clear Calc 60 Estimated GFR 56 L Glucose 88 Calcium 8.5 Total Bilirubin 0.4 AST 33 ALT 28 Alkaline Phosphatase 104 Total Protein 6.0 L Albumin 3.0 L OB - PN A/P Plan day: 2 Plan: routine care and discharge home Comments: - PO pain meds - Regular diet - Ambulation and hydration encouraged - GHTN vs PEC: BPs normal, LFT normal - Chorio:s/p antibiotics in labor; held PP due to RADHA and elevated trough levels, afebrile, WBC downtrending; UCx neg - RADHA: improving; s/p IVF PP, UOP has been adequate Time Spent With Patient Time: Total time spent is greater than 50% in coordination of care (as documented) at patient's floor/unit and/or counseling patient: Review of Systems Constitutional: Constitutional: Denies chills, Denies fever(s) and Denies headache(s) Eyes: Eyes: Denies change in vision ENT: Denies dizziness and Denies headache(s) Cardiovascular: Cardiovascular: Denies chest pain, Denies palpitations and Denies dyspnea Respiratory: Respiratory: Denies cough and Denies dyspnea Gastrointestinal: Gastrointestinal: Denies nausea and Denies vomiting Neurologic: Denies dizziness and Denies headache(s) Endocrine: Endocrine: Denies palpitations Exam Const: General: cooperative, healthy appearing, comfortable and no acute distress Orientation/consciousness: patient oriented x3 Resp: Effort & Inspection: normal respiratory effort Auscultation: clear to auscultation bilaterally Cardio: Rate: regular rate GI: Inspection: non-distended GI Palp: No abdominal tenderness and Yes Soft to palpation Auscultation: normal bowel sounds : Other: fundus firm Skin: General skin exam: normal color Neuro: General: patient oriented x3 Extrem: General: normal to inspection Psych: Appearance: grossly normal Affect: normal affect Attitude: cooperative
--- NOTE | 2024-06-02 09:55 | PM.OBDSVD ---
DS: Admitting Diagnosis Discharge Date 06/02/24 Admitting Diagnosis medical induction of labor gestational hypertension DS: Discharge Diagnosis Discharge Diagnosis (1) Gestational hypertension affecting first : Code(s): O13.9 - Gestational [-induced] hypertension without significant proteinuria, unspecified trimester Status: Acute (2) Status post vacuum-assisted vaginal delivery: Code(s): Z87.59 - Personal history of other complications of , childbirth and the puerperium Status: Acute (3) Chorioamnionitis: Qualifiers: Fetus number: single or unspecified fetus Trimester: third trimester Qualified Code(s): O41.1230 - Chorioamnionitis, third trimester, not applicable or unspecified Code(s): O41.1290 - Chorioamnionitis, unspecified trimester, not applicable or unspecified Status: Acute (4) RADHA (acute kidney injury): Code(s): N17.9 - Acute kidney failure, unspecified Status: Acute OB - DS: Summary OB Procedures : NST, PIH Mgmt and Ultrasound OB Procedures Intrapartum: Vacuum extraction OB Procedures: : Antibiotics Peripartum Data Delivery Method: Assisted Delivery Laceration Description: Periurethral (bilateral) Episiotomy description: None complications: none 1: Gender: Female Disposition of : home Status at Discharge Functional status at discharge: independent ambulation Overall status at discharge: patient is back to baseline Time Spent with Patient Time attestation: Total time spent providing and/or coordinating discharge services: Exam Const: General: cooperative, healthy appearing, comfortable and no acute distress Orientation/consciousness: patient oriented x3 Resp: Effort & Inspection: normal respiratory effort Auscultation: clear to auscultation bilaterally Cardio: Rate: regular rate GI: Inspection: non-distended GI Palp: No abdominal tenderness and Yes Soft to palpation Auscultation: normal bowel sounds : Other: fundus firm Skin: General skin exam: normal color Neuro: General: patient oriented x3 Extrem: General: normal to inspection Psych: Appearance: grossly normal Affect: normal affect Attitude: cooperative DS: Data Data Completed and Pending Pending studies at discharge: Pending at discharge 05/31/24 13:43 Surgical [PTH] Routine Labs on day of discharge: Labs from last 24 hours 06/02/24 04:23 WBC 12.0 H RBC 3.33 L Hgb 10.3 L Hct 31.0 L MCV 93.1 MCH 30.9 MCHC 33.2 RDW 13.9 Plt Count 195 MPV 12.5 H Sodium 136 L Potassium 3.6 Chloride 109 H Carbon Dioxide 19 L Anion Gap 8 BUN 21 H Creatinine 1.18 H Estim Creat Clear Calc 60 Estimated GFR 56 L Glucose 88 Calcium 8.5 Total Bilirubin 0.4 AST 33 ALT 28 Alkaline Phosphatase 104 Total Protein 6.0 L Albumin 3.0 L Discharge Plan Discharge Attending physician on discharge: Florecita Molina Discharging Clinician: Florecita Molina Patient Disposition: Home, Self-Care Activity: may shower and pelvic rest Diet: regular Patient Instructions: Vaginal Delivery (DC) Patient Language: Yoruba Stand Alone Forms: General Discharge Information Follow-up/Referrals: Florecita Molina MD [Physician] - 4 Weeks Discharge Medications: New acetaminophen 500 mg tablet 1,000 mg PO TID Qty: 60 0RF ibuprofen 800 mg tablet 800 mg PO TID Qty: 30 0RF docusate sodium [Colace] 100 mg capsule 100 mg PO BID Qty: 90 0RF Continued Classic 28 mg iron- 800 mcg tablet 1 tablet PO DAILY ferrous sulfate [Feosol] 325 mg (65 mg iron) tablet 325 mg PO DAILY Date of admission: 05/30/24 02:00 Primary Care Provider: UNKNOWN,DOCTOR Admitting Provider: Florecita Molina Attending physician on admission: Florecita Molina Condition: Stable
--- NOTE | 2024-06-02 11:55 | PC.NURSE ---
Went through discharge instructions with pt and significant other, pt verbalized understanding.
[2024-06-05 11:37] VITALS: BP 158/93; PULSE 88; RESP 18; TEMP 36.9; O2SAT 100
== END 2024-06-02 12:00 | disposition home or self-care (01) | DRG 805 ==
LOC: ANHLDR 02:05 → ANHOB2 05-31 09:13
PROVIDERS: Admitting Provider Obstetrics & Gynecology; Visit Provider Obstetrics & Gynecology
DX: O75.2 Pyrexia during labor, not elsewhere classified (principal); O41.1230 Chorioamnionitis, third trimester, not applicable or unspecified; Z37.0 Single live birth; N17.9 Acute kidney failure, unspecified; O99.824 Streptococcus B carrier state complicating childbirth; O13.4 Gestational [pregnancy-induced] hypertension without significant proteinuria, complicating childbirth; O77.0 Labor and delivery complicated by meconium in amniotic fluid; O71.82 Other specified trauma to perineum and vulva; O99.892 Other specified diseases and conditions complicating childbirth; Z3A.39 39 weeks gestation of pregnancy
CPT/HCPCS: 36415; 80053; 80170; 80202; 82565; 84550; 85025; 85027; 86592; 86703; 86850; 86900; 86901; 87086; 87637; 88307; A9270; G0432; J1200; J1580; J2003; J2405; J2590; J2795; J3010; J3370; J7030; J7120

== ENCOUNTER 2024-06-05 11:44 | Observation (INO) | payer BC, SELFPAY ==
[2024-06-05] VITALS (96 sets, daily range): BP systolic 125–173; BP diastolic 76–103; PULSE 63–96; RESP 16–18; TEMP 36.1–36.9; O2SAT 96–100; BMI 32.2
[2024-06-05 12:19] LABS: Basophils Percent Auto 0.5 % (0.2-1.2); Eosinophils Absolute Auto 0.1 K/mm3 (0-0.3); Eosinophils Percent Auto 0.7 % (0-4.4); Hematocrit 33.4 % (37.0-47.0); Hemoglobin 10.5 g/dL (12.0-15.0); Immature Granulocyte Absolute 0.03 K/mm3 (0.00-0.031); Immature Granulocyte Percent A 0.4 % (0-0.5); Lymphocytes Absolute Auto 1.49 K/mm3 (0.9-3.2); Lymphocytes Percent Auto 20.2 % (18.3-44.2); Mean Corpuscular HGB Conc 31.4 g/dl (32-36); Mean Corpuscular Hemoglobin 30.8 pg (26-34); Mean Corpuscular Volume 97.9 fl (80-100); Mean Platelet Volume 11.2 fl (7.4-10.4); Monocytes Absolute Auto 0.3 K/mm3 (0.1-0.6); Monocytes Percent Auto 4.6 % (2.6-8.5); Neutrophils Absolute Auto 5.4 K/mm3 (1.3-6.7); Neutrophils Percent Auto 73.6 % (45.5-73.1); Platelet Count Result 252 k/mm3 (150-375); Red Blood Count 3.41 M/mm3 (4.2-5.4); Red Cell Distribution Width 13.4 % (11.5-14.5); White Blood Count 7.4 K/mm3 (4.5-10.0)
[2024-06-05 12:31] LABS: Alanine Aminotransferase 31 U/L (6-35); Albumin Level 3.6 g/dL (3.5-5.1); Alkaline Phosphatase 103 U/L (38-126); Anion Gap 12 mmol/L (4-12); Aspartate Amino Transferase 31 U/L (14-36); Bilirubin,Total 0.6 mg/dL (0.2-1.3); Blood Urea Nitrogen 16 mg/dL (7-17); Calcium 8.7 mg/dL (8.4-10.2); Carbon Dioxide 20 mmol/L (22-30); Chloride 107 mmol/L (98-107); Estimated Glomerular Filt Rate > 60; Glucose 82 mg/dL (65-110); Sodium 139 mmol/L (137-145); Uric Acid 6.5 mg/dL (2.5-7.5)
[2024-06-05] MEDS: LABETALOL HCL INJ 100 MG/20 ML VIAL 20 MG IV PUSH (12:52)
[2024-06-05] MEDS: LACTATED RINGERS 1,000 ML 75 ML IV CONT (12:54)
[2024-06-05] MEDS: MAGNESIUM SULF 4 GM/WATER100ML 4 GM/100 ML BAG IVPB (12:55)
[2024-06-05] MEDS: LABETALOL HCL INJ 100 MG/20 ML VIAL 40 MG IV PUSH (13:08)
[2024-06-05] MEDS: MAGNESIUM SULF 20GM/WATER500ML 500 ML 50 MG IV CONT ×2 (13:34→23:29)
--- NOTE | 2024-06-05 14:04 | OBADM ---
This patient, Jade Stewart, admitted to the OB room OB Post 117 for observation. Patient/family oriented to hospital policies and general routines including ID bracelet, bed and alarms, visiting hours, pain management, procedures, bathroom and other care routines, personal items, smoking policy, room service/diet, and visiting hours. Patient/Family are encouraged to report perceived risks to care and to ask questions if they do not understand what they are told or what they should do.
--- NOTE | 2024-06-05 14:39 | PC.NURSE ---
Informed Dr. Molina of current pressures at 1340. Ok to order regular diet. No further orders at this time.
[2024-06-05] MEDS: LABETALOL HCL 100 MG TABLET 200 MG PO (20:45)
[2024-06-06] VITALS (11 sets, daily range): BP systolic 116–138; BP diastolic 70–91; PULSE 90–109; RESP 15; TEMP 36.6; O2SAT 99–100
[2024-06-06] MEDS: LACTATED RINGERS 1,000 ML 75 ML IV CONT (02:31)
--- NOTE | 2024-06-06 07:10 | PM.IMHP ---
H&P: HPI History of Present Illness Date/Time: 06/05/24 14:19 Chief Complaint: elevated blood pressure Narrative: Jade is a 23yo P1001 s/p VAVD on 05/31/24. She was induced for GHTN and her delivery was complicated by fever (chorio (unlikely as placenta pathology did not show chorio) vs pyelo) and RADHA. Her Cr downtrended and her UOP was adequate. During her stay, her BPs were normal to occasionally moderately elevated, but mostly normal. She did not have any symptoms of pre-eclampsia except swelling. She presented to her hospital f/u 06/05/24 and was found to have elevated blood pressures, that then become severe range requiring IV labetalol. She is pumping. She denies LOPEZ, vision changes, CP, SOB. She reports her vaginal bleeding is normal. No issues overnight, has continued the magnesium. Her BPs have been in the normal to moderate range, no further severe range BP's since admission. Review of Systems Constitutional: Constitutional: Denies chills, Denies fever(s) and Denies headache(s) Eyes: Eyes: Denies change in vision Cardiovascular: Cardiovascular: Denies chest pain, Denies palpitations and Denies dyspnea Respiratory: Respiratory: Denies dyspnea Gastrointestinal: Gastrointestinal: Denies abdominal pain, Denies nausea and Denies vomiting Genitourinary: Genitourinary: Denies abnormal vaginal bleeding Neurologic: Denies dizziness and Denies headache(s) Psychiatric: Psychiatric: Denies anxiety and Denies depression [facility] Past Medical History Medical History (Updated 06/05/24 @ 14:19 by Florecita Molina MD) IUP (intrauterine ), incidental Obesity Suppression of menses Social History Social History Smoking status: Former smoker Tobacco type: cigarettes and e-cigarettes/vaping Smokeless tobacco user: other Smoking end date: 07/17/23 Alcohol intake: never Substance use: never Substance use type: does not use Do You Feel Safe in your Home?: Yes Lack of Transportation: No Lack of Food: Never True Current Housing: I Have Housing Concerned About Future Housing: No Difficulty Paying Gas/Electric Bills: No Difficulty Paying for Meds: No Currently Unemployed: No Education: Associate Degree Difficulty w/ Childcare or Family Care: No Living arrangements: with family Gender identity (if verbalized by the patient): Female Sexual Orientation (if Verbalized by the Patient): Straight or Heterosexual Spiritual care concerns: Yes Meds Home Medications and Allergies Home Medications ?Medication ?Instructions ?Recorded ?Confirmed ?Type vits no.126-ferrous fum 1 tablet PO DAILY 10/26/23 05/29/24 History 28 mg iron-folic acid 800 mcg tablet (Classic ) ferrous sulfate 325 mg (65 mg 325 mg PO DAILY 03/27/24 05/29/24 History iron) tablet (Feosol) acetaminophen 500 mg tablet 1,000 mg (2 x 500 mg) PO TID #60 06/02/24 Rx tabs docusate sodium 100 mg capsule 100 mg PO BID #90 caps 06/02/24 Rx (Colace) ibuprofen 800 mg tablet 800 mg PO TID #30 tabs 06/02/24 Rx Allergies Allergy/AdvReac Type Severity Reaction Status Date / Time Penicillins Allergy Severe Anaphylactic Verified 06/05/24 14:44 Shock Vital Signs Vital Signs - 24 hr 06/05/24 12:02 06/05/24 12:03 06/05/24 12:07 Pulse Rate 63 Blood Pressure 169/100 H Pulse Oximetry 100 97 06/05/24 12:08 06/05/24 12:10 06/05/24 12:15 Pulse Rate Blood Pressure Pulse Oximetry 100 99 98 06/05/24 12:16 06/05/24 12:20 06/05/24 12:25 Pulse Rate 68 Blood Pressure 167/98 H Pulse Oximetry 100 99 06/05/24 12:30 06/05/24 12:31 06/05/24 12:35 Pulse Rate 67 Blood Pressure 173/103 H Pulse Oximetry 99 100 06/05/24 12:40 06/05/24 12:45 06/05/24 12:50 Pulse Rate Blood Pressure Pulse Oximetry 96 100 99 06/05/24 12:52 06/05/24 12:55 06/05/24 12:57 Pulse Rate 64 68 Blood Pressure 163/97 H Pulse Oximetry 100 06/05/24 13:00 06/05/24 13:01 06/05/24 13:05 Pulse Rate 63 70 Blood Pressure 160/93 H 164/88 H Pulse Oximetry 96 97 06/05/24 13:08 06/05/24 13:10 06/05/24 13:11 Pulse Rate 72 74 Blood Pressure 155/86 H Pulse Oximetry 97 06/05/24 13:15 06/05/24 13:20 06/05/24 13:21 Pulse Rate 73 Blood Pressure 148/83 H Pulse Oximetry 100 98 06/05/24 13:25 06/05/24 13:30 06/05/24 13:31 Pulse Rate 73 Blood Pressure 146/90 H Pulse Oximetry 97 100 06/05/24 13:35 06/05/24 13:40 06/05/24 13:41 Pulse Rate 72 Blood Pressure 154/90 H Pulse Oximetry 100 98 06/05/24 13:49 06/05/24 13:51 06/05/24 13:54 Pulse Rate 71 Blood Pressure 154/96 H Pulse Oximetry 100 100 06/05/24 13:59 06/05/24 14:01 06/05/24 14:04 Pulse Rate 67 Blood Pressure 163/102 H Pulse Oximetry 100 99 06/05/24 14:09 06/05/24 14:11 06/05/24 14:14 Pulse Rate 77 74 Blood Pressure 153/93 H 154/91 H Pulse Oximetry 100 99 Exam Const: General: cooperative, healthy appearing, comfortable and no acute distress Resp: Effort & Inspection: normal respiratory effort Auscultation: clear to auscultation bilaterally Cardio: Rate: regular rate GI: Inspection: normal to inspection GI Palp: No abdominal tenderness Skin: General skin exam: normal color Neuro: General: patient oriented x3 Extrem: General: no edema Psych: Appearance: grossly normal Attitude: cooperative H&P: Results Labs Labs: Short CBC 06/05/24 Range/Units 12:05 WBC 7.4 (4.5-10.0) K/mm3 Hgb 10.5 L (12.0-15.0) g/dL Hct 33.4 L (37.0-47.0) % Plt Count 252 (150-375) k/mm3 BMP 06/05/24 12:06 Sodium 139 Potassium 4.0 Chloride 107 Carbon Dioxide 20 L BUN 16 Creatinine 0.84 Glucose 82 Calcium 8.7 Liver Function 06/05/24 Range/Units 12:06 Total Bilirubin 0.6 (0.2-1.3) mg/dL AST 31 (14-36) U/L ALT 31 (6-35) U/L Alkaline Phosphatase 103 (38-126) U/L Albumin 3.6 (3.5-5.1) g/dL Assessment and Plan Assessment and plan (1) Pre-eclampsia, : Code(s): O14.95 - Unspecified pre-eclampsia, complicating the puerperium Status: Acute Plan - S/p labetalol 20mg IV once due to severe range BPs - magnesium sulfate for seizure ppx 4g loading, then continue 2g/hr for 24 hours - will start labetalol 200mg BID - Labs stable; cr improved; strict I&O's - tylenol PRN pain - pump to bedside - regular diet - possible discharge this PM if BPs stable after discontinuing magnesium
[2024-06-06 08:39] LABS: Hematocrit 35.5 % (37.0-47.0); Hemoglobin 11.9 g/dL (12.0-15.0); Mean Corpuscular HGB Conc 33.5 g/dl (32-36); Mean Corpuscular Hemoglobin 30.2 pg (26-34); Mean Corpuscular Volume 90.1 fl (80-100); Mean Platelet Volume 10.9 fl (7.4-10.4); Platelet Count Result 292 k/mm3 (150-375); Red Blood Count 3.94 M/mm3 (4.2-5.4); Red Cell Distribution Width 12.9 % (11.5-14.5)
[2024-06-06 08:50] LABS: Alanine Aminotransferase 32 U/L (6-35); Albumin Level 3.9 g/dL (3.5-5.1); Alkaline Phosphatase 133 U/L (38-126); Anion Gap 11 mmol/L (4-12); Aspartate Amino Transferase 36 U/L (14-36); Bilirubin,Total 0.6 mg/dL (0.2-1.3); Blood Urea Nitrogen 12 mg/dL (7-17); Calcium 6.9 mg/dL (8.4-10.2); Carbon Dioxide 27 mmol/L (22-30); Chloride 98 mmol/L (98-107); Estimated CRCL calculation 93 ml/min; Estimated Glomerular Filt Rate > 60; Glucose 108 mg/dL (65-110); Magnesium 8.3 mg/dL (1.6-2.3); Potassium 3.4 mmol/L (3.4-5.0); Sodium 136 mmol/L (137-145)
[2024-06-06] MEDS: LABETALOL HCL 100 MG TABLET 200 MG PO (09:39)
[2024-06-06] MEDS: MAGNESIUM SULF 20GM/WATER500ML 500 ML 50 MG IV CONT (10:42)
--- NOTE | 2024-06-06 16:25 | P.DS_ITS ---
DS: Admitting Diagnosis Discharge Date 06/06/24 Admitting Diagnosis post- pre-eclampsia DS: Discharge Diagnosis Discharge Diagnosis (1) Pre-eclampsia, : Code(s): O14.95 - Unspecified pre-eclampsia, complicating the puerperium Status: Acute OB - DS: Summary Hospital Course Hospital Course: Jade is a 23yo P1001 s/p VAVD on 05/31/24. She was induced for GHTN and her delivery was complicated by fever (chorio (unlikely as placenta pathology did not show chorio) vs pyelo) and RADHA. Her Cr downtrended and her UOP was adequate. During her stay, her BPs were normal to occasionally moderately elevated, but mostly normal. She did not have any symptoms of pre-eclampsia except swelling during her stay. She presented to her routinely scheduled hospital f/u on 06/05/24 and was found to have elevated blood pressures, that then become severe range requiring IV labetalol. She was started on magnesium sulfate for seizure prophylaxis and that was continued for 24 hours. She was also started on PO labetalol 200mg. she was monitored closely after the magnesium was discontinued and her BPs have remained in the normal to moderate range, no further severe range BP's since admission. She is asymptomatic and would like to be discharged home this evening. She will have outpatient f/u in 1wk to check her blood pressure. OB Procedures : None OB Procedures Intrapartum: Other (VAVD on 05/31/24) OB Procedures: : Other (magnesium sulfate, labetalol 20mg IV) Status at Discharge Functional status at discharge: independent ambulation Overall status at discharge: patient is back to baseline Time Spent with Patient Time attestation: Total time spent providing and/or coordinating discharge services: Time spent: Less than 30 minutes Exam Const: General: cooperative, healthy appearing, comfortable and no acute distress Resp: Effort & Inspection: normal respiratory effort Auscultation: clear to auscultation bilaterally Cardio: Rate: regular rate GI: Inspection: normal to inspection GI Palp: No abdominal tenderness Skin: General skin exam: normal color Neuro: General: patient oriented x3 Extrem: General: no edema Psych: Appearance: grossly normal Attitude: cooperative DS: Data Data Completed and Pending Labs on day of discharge: Labs from last 24 hours 06/06/24 08:29 WBC 7.0 RBC 3.94 L Hgb 11.9 L Hct 35.5 L MCV 90.1 D MCH 30.2 MCHC 33.5 RDW 12.9 Plt Count 292 MPV 10.9 H Sodium 136 L Potassium 3.4 Chloride 98 Carbon Dioxide 27 Anion Gap 11 BUN 12 Creatinine 0.79 Estim Creat Clear Calc 93 Estimated GFR > 60 Glucose 108 Calcium 6.9 L Magnesium 8.3 H Total Bilirubin 0.6 AST 36 ALT 32 Alkaline Phosphatase 133 H Total Protein 8.0 Albumin 3.9 Discharge Plan Discharge Attending physician on discharge: Florecita Molina Discharging Clinician: Florecita Molina Anticipated Discharge Date/Time: 06/06/24 18:00 Patient Disposition: Home, Self-Care Activity: may shower and pelvic rest Diet: regular Patient Instructions: Antibiotic Form Patient Language: Chinese Stand Alone Forms: General Discharge Information Follow-up/Referrals: Florecita Molina MD [Physician] - 1 Week (for office BP check) Discharge Medications: New labetalol 200 mg tablet 200 mg PO Q12H 30 Days Qty: 60 2RF Continued Classic 28 mg iron- 800 mcg tablet 1 tablet PO DAILY ferrous sulfate [Feosol] 325 mg (65 mg iron) tablet 325 mg PO DAILY acetaminophen 500 mg tablet 1,000 mg PO TID Qty: 60 0RF ibuprofen 800 mg tablet 800 mg PO TID Qty: 30 0RF docusate sodium [Colace] 100 mg capsule 100 mg PO BID Qty: 90 0RF Date of admission: 06/05/24 12:55 Primary Care Provider: UNKNOWN,DOCTOR Admitting Provider: Florecita Molina Attending physician on admission: Florecita Molina Condition: Stable
== END 2024-06-06 17:00 | disposition home or self-care (01) ==
LOC: ANHOBOP 11:49 → ANHOBPP 06-06 16:22 → ANHOBOP 06-10 07:05 → ANHOBPP 06-10 07:05 → ANHOBOP 06-10 07:06 → ANHOBPP 06-10 07:06
PROVIDERS: Admitting Provider Obstetrics & Gynecology; Visit Provider Obstetrics & Gynecology
DX: O14.95 Unspecified pre-eclampsia, complicating the puerperium (principal); Z87.891 Personal history of nicotine dependence
CPT/HCPCS: 36415; 80053; 83735; 84550; 85025; 85027; 96365; 96366; 96375; 99199; A9270; G0378; G0379; J3475; J7120

== ENCOUNTER 2025-02-17 16:54 | Outpatient (CLI) | payer BC, SELFPAY ==
[2025-02-17 18:30] LABS: Beta HCG Quantitative 16531.00 mIU/ML
== END 2025-02-17 16:55 | disposition home or self-care (01) ==
LOC: ANHLAB 16:56
PROVIDERS: Visit Provider Student in an Organized Health Care Education/Training Program
DX: O20.9 Hemorrhage in early pregnancy, unspecified (principal); Z3A.00 Weeks of gestation of pregnancy not specified
CPT/HCPCS: 36415; 84702

== ENCOUNTER 2025-03-12 14:16 | Observation (INO) | payer BC, SELFPAY ==
[2025-03-12] VITALS (16 sets, daily range): BP systolic 86–127; BP diastolic 57–91; PULSE 90–131; RESP 12–20; TEMP 36.3–37.3; O2SAT 98–100; BMI 32.1
--- NOTE | ~2025-03-12 | US_ITS ---
US OB <= 14 weeks fetus 03/12/2025 16:07 Indication: Heavy vaginal bleeding Procedure: Realtime transabdominal ultrasound of the pelvis Comparison: Ultrasound dated 05/23/2024 Findings: No intrauterine gestational sac, yolk sac or pole identified. Endometrium is thickened and heterogeneous measuring up to 2.4 cm. Right ovary is normal measuring 3.9 x 2.5 x 2.4 cm. Left ovary is not visualized. No left adnexal mass is identified. No significant abnormality of the pelvic cul-de-sac. Impression: 1: No intrauterine gestational sac identified in patient with following beta-hCG levels and heavy vaginal bleeding. Findings most consistent with resolving or early loss. Recommend continue to follow quantitative beta-hCG levels to ensure complete resolution. If bleeding persists or beta-hCG levels plateau, consider TOBACCO PRIMER MACHINE OPERATOR evaluation. 2: Thickened endometrium which is heterogeneous measuring 2.4 cm. Findings suspicious for retained products of conception, blood products or endometrial sloughing. Reviewed, dictated and finalized at location O. ARCH ANTHROPOLOGIST Impression: 1: No intrauterine gestational sac identified in patient with following beta-hC G levels and heavy vaginal bleeding. Findings most consistent with resolving or early loss. Recommend continue to follow quantitative beta-hCG level s to ensure complete resolution. If bleeding persists or beta-hCG levels platea u, consider TOBACCO PRIMER MACHINE OPERATOR evaluation. 2: Thickened endometrium which is heterogeneous measuring 2.4 cm. Findings susp icious for retained products of conception, blood products or endometrial sloug diana.
[2025-03-12 15:11] LABS: Hematocrit 34.8 % (37.0-47.0); Hemoglobin 11.7 g/dL (12.0-15.0); Immature Granulocyte Percent A 0.3 % (0-0.5); Lymphocytes Absolute Auto 1.65 K/mm3 (0.9-3.2); Mean Corpuscular HGB Conc 33.6 g/dl (32-36); Mean Corpuscular Hemoglobin 28.7 pg (26-34); Mean Corpuscular Volume 85.3 fl (80-100); Nucleated Red Blood Cells Absolute Auto 0.000 K/mm3 (0.0-0.012); Nucleated Red Blood Cells Perc 0.0 % (0.0-0.2); Platelet Count Result 217 k/mm3 (150-375); Red Blood Count 4.08 M/mm3 (4.2-5.4); White Blood Count 6.6 K/mm3 (4.5-10.0)
[2025-03-12 15:25] LABS: Alanine Aminotransferase 18 U/L (6-35); Albumin Level 4.9 g/dL (3.5-5.1); Alkaline Phosphatase 54 U/L (38-126); Anion Gap 9 mmol/L (4-12); Aspartate Amino Transferase 28 U/L (14-36); Bilirubin,Total 0.3 mg/dL (0.2-1.3); Blood Urea Nitrogen 7 mg/dL (7-17); Calcium 9.3 mg/dL (8.4-10.2); Carbon Dioxide 25 mmol/L (22-30); Chloride 105 mmol/L (98-107); Estimated CRCL calculation 124 ml/min; Estimated Glomerular Filt Rate > 60; Glucose 97 mg/dL (65-110); INR 1.2; Potassium 3.8 mmol/L (3.4-5.0); Prothrombin Time 15.3 Seconds (11.1-14.7); Sodium 139 mmol/L (137-145); Total Protein 8.6 g/dL (6.3-8.2)
[2025-03-12 15:26] LABS: Partial Thromboplastin Time 29.8 Seconds (22.3-36.8)
--- NOTE | 2025-03-12 15:53 | ED.GENADULT ---
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 She reports she has been spotting for about 1 month and her OBGYN is aware. She sees Dr. Belle with OBGYN. She also reports diffuse lower abdominal cramping and subjective fever/chills. Denies nausea/vomiting, chest pains shortness of breath, and urinary symptoms. <BEBO Christina - Last Filed: 03/12/25 19:16> Related Data Home medications: Home Medications ?Medication ?Instructions ?Recorded ?Confirmed ?Last Taken ?Type No Home Medications 02/20/25 02/20/25 Unknown History <BEBO Christina - Last Filed: 03/12/25 19:16> Allergies/adverse reactions: Allergies Allergy/AdvReac Type Severity Reaction Status Date / Time Penicillins Allergy Severe Anaphylactic Verified 02/20/25 13:58 Shock <BEBO Christina - Last Filed: 03/12/25 19:16> Review of Systems Review of Systems: All systems reviewed & are unremarkable except as noted in HPI and below <BEBO Christina - Last Filed: 03/12/25 19:16> PMFSH Past Medical History Medical History: Medical History IUP (intrauterine ), incidental Obesity Suppression of menses <BEBO Christina - Last Filed: 03/12/25 19:16> Social History Social History: Social History Smoking status: Former smoker Tobacco type: cigarettes and e-cigarettes/vaping Smokeless tobacco user: other Smoking end date: 07/17/23 Alcohol intake: never Substance use: never Substance use type: does not use Lack of Transportation: No Lack of Food: Never True Current Housing: I Have Housing Concerned About Future Housing: No Difficulty Paying Gas/Electric Bills: No Difficulty Paying for Meds: No Currently Unemployed: No Education: Associate Degree Difficulty w/ Childcare or Family Care: No Living arrangements: with family Gender identity (if verbalized by the patient): Female Sexual Orientation (if Verbalized by the Patient): Straight or Heterosexual Spiritual care concerns: Yes <BEBO Christina - Last Filed: 03/12/25 19:16> Exam Narrative: GENERAL: Tearful and in mild acute distress. HEAD: Normocephalic, atraumatic. EYES: PERRLA and EOMI. ENT: Nares clear, no rhinorrhea or epistaxis. Mucous membranes moist. Oropharynx without tonsillar hypertrophy exudate or other lesions. Bilateral TMs pearly parker non-bulging NECK: Supple. No adenopathy or masses. No carotid bruits or JVD CHEST: Clear to auscultation. No respiratory distress. No wheezes rales or rhonchi HEART: Regular rhythm, mildly tachycardic around 100 bpm. No murmur heard. Normal peripheral pulses. ABDOMEN: Soft, nondistended, normal active bowel sounds. Diffuse lower abdominal TTP. EXTREMITIES: Normal range of motion. No edema. SKIN: Warm, dry, no rash. PELVIC: Diffuse blood and large clots, unable to visualize the cervix. NEURO: No focal deficits. Alert and oriented x3. PSYCH: Normal mood and affect <BEBO Christina - Last Filed: 03/12/25 19:16> Course Reevaluation(s) Reevaluation #1: Patient has been here for 5 hours and continues to show a large diaper with bloody clots every hour, she did receive a unit of blood, she is still clammy and diaphoretic. This point I did call OB Dr Clark who plans to come and to take patient for urgent D and C. patient and at bedside updated. <Keesha Thomson MD - Last Filed: 03/12/25 19:27> Vital Signs Vital signs: Vital Signs Temperature 99.2 F 03/12/25 14:41 Pulse Rate 94 03/12/25 14:41 Respiratory Rate 17 03/12/25 14:41 Blood Pressure 126/91 H 03/12/25 14:41 Pulse Oximetry 100 03/12/25 14:41 Oxygen Delivery Room Air 03/12/25 14:41 Temperature 98.4 F 03/12/25 18:51 Pulse Rate 113 H 03/12/25 19:05 Respiratory Rate 20 03/12/25 19:05 Blood Pressure 105/74 03/12/25 19:05 Pulse Oximetry 100 03/12/25 19:05 Oxygen Delivery Room Air 03/12/25 14:41 <BEBO Christina - Last Filed: 03/12/25 19:16> Vital Signs Temperature 99.2 F 03/12/25 14:41 Pulse Rate 94 03/12/25 14:41 Respiratory Rate 17 03/12/25 14:41 Blood Pressure 126/91 H 03/12/25 14:41 Pulse Oximetry 100 03/12/25 14:41 Oxygen Delivery Room Air 03/12/25 14:41 Temperature 98.4 F 03/12/25 18:51 Pulse Rate 113 H 03/12/25 19:05 Respiratory Rate 20 03/12/25 19:05 Blood Pressure 105/74 03/12/25 19:05 Pulse Oximetry 100 03/12/25 19:05 Oxygen Delivery Room Air 03/12/25 14:41 <Keesha Thomson MD - Last Filed: 03/12/25 19:27> Medical Decision Making MDM Narrative Medical decision making narrative: 24-year-old female presenting with heavy vaginal bleeding while 10 weeks . Patient is passing large clots and soaking more than two large pads/hour while in the ED. Initial pelvic exam demonstrated diffuse bleeding and large clots. Obtained specimen. Unable to visualize the cervix. Follow-up pelvic exam by ER provider Dr. Greer demonstrated an open cervix with diffuse active bleeding and very large clots. Evacuated a significant amount. Labs demonstrated a good initial H&[place] [address]. Patient was mildly tachycardic around 100 during my initial assessment. 1 L of fluids administered. US demonstrated no intrauterine gestational sac and suspicion for retained products of conception. US darkroom technician also stated that the US had to be stopped early due to patient's significant bleeding. Discussed with OBGYN Dr. Clark patient presentation and workup. Agrees with admission at this time. On reassessment patient became very pale and diaphoretic. Administered 1U of blood and more fluids and contacted Dr. Clark to update him on the patient's disposition. Will continue to monitor the patient. OBGYN will continue to evaluate. Patient verbalized understanding and is in agreement with current plan. <BEBO Christina - Last Filed: 03/12/25 19:16> Medical Records Medical records reviewed: Yes I reviewed the external patient's medical records. <BEBO Christina - Last Filed: 03/12/25 19:16> Vital Signs Vital Signs: Vital Signs Temperature 99.2 F 03/12/25 14:41 Pulse Rate 94 03/12/25 14:41 Respiratory Rate 17 03/12/25 14:41 Blood Pressure 126/91 H 03/12/25 14:41 Pulse Oximetry 100 03/12/25 14:41 Oxygen Delivery Room Air 03/12/25 14:41 Temperature 98.4 F 03/12/25 18:51 Pulse Rate 113 H 03/12/25 19:05 Respiratory Rate 20 03/12/25 19:05 Blood Pressure 105/74 03/12/25 19:05 Pulse Oximetry 100 03/12/25 19:05 Oxygen Delivery Room Air 03/12/25 14:41 <BEBO Christina - Last Filed: 03/12/25 19:16> Vital Signs Temperature 99.2 F 03/12/25 14:41 Pulse Rate 94 03/12/25 14:41 Respiratory Rate 17 03/12/25 14:41 Blood Pressure 126/91 H 03/12/25 14:41 Pulse Oximetry 100 03/12/25 14:41 Oxygen Delivery Room Air 03/12/25 14:41 Temperature 98.4 F 03/12/25 18:51 Pulse Rate 113 H 03/12/25 19:05 Respiratory Rate 20 03/12/25 19:05 Blood Pressure 105/74 03/12/25 19:05 Pulse Oximetry 100 03/12/25 19:05 Oxygen Delivery Room Air 03/12/25 14:41 <Keesha Thomson MD - Last Filed: 03/12/25 19:27> Lab Data Lab results reviewed: Yes I reviewed the patient's lab results. <BEBO Christina - Last Filed: 03/12/25 19:16> Result diagrams: 03/12/25 16:59 03/12/25 15:05 <BEBO Christina - Last Filed: 03/12/25 19:16> Labs: Lab Results 03/12/25 03/12/25 03/12/25 Range/Units 15:05 15:05 15:05 WBC 6.6 (4.5-10.0) K/mm3 RBC 4.08 L (4.2-5.4) M/mm3 Hgb 11.7 L (12.0-15.0) g/dL Hct 34.8 L (37.0-47.0) % MCV 85.3 (80-100) fl MCH 28.7 (26-34) pg MCHC 33.6 (32-36) g/dl RDW 12.4 (11.5-14.5) % Plt Count 217 (150-375) k/mm3 MPV 11.1 H (7.4-10.4) fl Immature Gran % (Auto) 0.3 (0-0.5) % Neut % (Auto) 68.6 (45.5-73.1) % Lymph % (Auto) 24.9 (18.3-44.2) % [place] % (Auto) 4.4 (2.6-8.5) % Eos % (Auto) 1.5 (0-4.4) % Baso % (Auto) 0.3 (0.2-1.2) % Lymph # (Auto) 1.65 (0.9-3.2) K/mm3 [place] # (Auto) 0.3 (0.1-0.6) K/mm3 Eos # (Auto) 0.1 (0-0.3) K/mm3 Baso # (Auto) 0.0 (0.0-0.1) K/mm3 Abs Immat Gran (auto) 0.02 (0.00-0.031) K/mm3 Absolute Neuts (auto) 4.5 (1.3-6.7) K/mm3 Absolute Nucleated RBC 0.000 (0.0-0.012) K/mm3 Nucleated RBC % 0.0 (0.0-0.2) % PT 15.3 H (11.1-14.7) Seconds INR 1.2 APTT 29.8 (22.3-36.8) Seconds Sodium Cancelled 139 Potassium Cancelled 3.8 Chloride Cancelled Carbon Dioxide Anion Gap BUN Creatinine Estim Creat Clear Calc Estimated GFR Glucose Calcium Total Bilirubin AST ALT Alkaline Phosphatase Total Protein Albumin Beta HCG, Quant mIU/ML Blood Type Antibody Screen Crossmatch 03/12/25 03/12/25 03/12/25 Range/Units 15:05 15:05 15:05 WBC (4.5-10.0) K/mm3 RBC (4.2-5.4) M/mm3 Hgb (12.0-15.0) g/dL Hct (37.0-47.0) % MCV (80-100) fl MCH (26-34) pg MCHC (32-36) g/dl RDW (11.5-14.5) % Plt Count (150-375) k/mm3 MPV (7.4-10.4) fl Immature Gran % (Auto) (0-0.5) % Neut % (Auto) (45.5-73.1) % Lymph % (Auto) (18.3-44.2) % [place] % (Auto) (2.6-8.5) % Eos % (Auto) (0-4.4) % Baso % (Auto) (0.2-1.2) % Lymph # (Auto) (0.9-3.2) K/mm3 [place] # (Auto) (0.1-0.6) K/mm3 Eos # (Auto) (0-0.3) K/mm3 Baso # (Auto) (0.0-0.1) K/mm3 Abs Immat Gran (auto) (0.00-0.031) K/mm3 Absolute Neuts (auto) (1.3-6.7) K/mm3 Absolute Nucleated RBC (0.0-0.012) K/mm3 Nucleated RBC % (0.0-0.2) % PT (11.1-14.7) Seconds INR APTT (22.3-36.8) Seconds Sodium Potassium Chloride 105 Carbon Dioxide Cancelled 25 Anion Gap Cancelled 9 BUN Cancelled Creatinine Estim Creat Clear Calc Estimated GFR Glucose Calcium Total Bilirubin AST ALT Alkaline Phosphatase Total Protein Albumin Beta HCG, Quant mIU/ML Blood Type Antibody Screen Crossmatch 03/12/25 03/12/25 03/12/25 Range/Units 15:05 15:05 15:05 WBC (4.5-10.0) K/mm3 RBC (4.2-5.4) M/mm3 Hgb (12.0-15.0) g/dL Hct (37.0-47.0) % MCV (80-100) fl MCH (26-34) pg MCHC (32-36) g/dl RDW (11.5-14.5) % Plt Count (150-375) k/mm3 MPV (7.4-10.4) fl Immature Gran % (Auto) (0-0.5) % Neut % (Auto) (45.5-73.1) % Lymph % (Auto) (18.3-44.2) % [place] % (Auto) (2.6-8.5) % Eos % (Auto) (0-4.4) % Baso % (Auto) (0.2-1.2) % Lymph # (Auto) (0.9-3.2) K/mm3 [place] # (Auto) (0.1-0.6) K/mm3 Eos # (Auto) (0-0.3) K/mm3 Baso # (Auto) (0.0-0.1) K/mm3 Abs Immat Gran (auto) (0.00-0.031) K/mm3 Absolute Neuts (auto) (1.3-6.7) K/mm3 Absolute Nucleated RBC (0.0-0.012) K/mm3 Nucleated RBC % (0.0-0.2) % PT (11.1-14.7) Seconds INR APTT (22.3-36.8) Seconds Sodium Potassium Chloride Carbon Dioxide Anion Gap BUN 7 D Creatinine Cancelled 0.54 L Estim Creat Clear Calc Cancelled 124 Estimated GFR Cancelled Glucose Calcium Total Bilirubin AST ALT Alkaline Phosphatase Total Protein Albumin Beta HCG, Quant mIU/ML Blood Type Antibody Screen Crossmatch 03/12/25 03/12/25 03/12/25 Range/Units 15:05 15:05 15:05 WBC (4.5-10.0) K/mm3 RBC (4.2-5.4) M/mm3 Hgb (12.0-15.0) g/dL Hct (37.0-47.0) % MCV (80-100) fl MCH (26-34) pg MCHC (32-36) g/dl RDW (11.5-14.5) % Plt Count (150-375) k/mm3 MPV (7.4-10.4) fl Immature Gran % (Auto) (0-0.5) % Neut % (Auto) (45.5-73.1) % Lymph % (Auto) (18.3-44.2) % [place] % (Auto) (2.6-8.5) % Eos % (Auto) (0-4.4) % Baso % (Auto) (0.2-1.2) % Lymph # (Auto) (0.9-3.2) K/mm3 [place] # (Auto) (0.1-0.6) K/mm3 Eos # (Auto) (0-0.3) K/mm3 Baso # (Auto) (0.0-0.1) K/mm3 Abs Immat Gran (auto) (0.00-0.031) K/mm3 Absolute Neuts (auto) (1.3-6.7) K/mm3 Absolute Nucleated RBC (0.0-0.012) K/mm3 Nucleated RBC % (0.0-0.2) % PT (11.1-14.7) Seconds INR APTT (22.3-36.8) Seconds Sodium Potassium Chloride Carbon Dioxide Anion Gap BUN Creatinine Estim Creat Clear Calc Estimated GFR > 60 Glucose Cancelled 97 Calcium Cancelled 9.3 Total Bilirubin Cancelled AST ALT Alkaline Phosphatase Total Protein Albumin Beta HCG, Quant mIU/ML Blood Type Antibody Screen Crossmatch 03/12/25 03/12/25 03/12/25 Range/Units 15:05 15:05 15:05 WBC (4.5-10.0) K/mm3 RBC (4.2-5.4) M/mm3 Hgb (12.0-15.0) g/dL Hct (37.0-47.0) % MCV (80-100) fl MCH (26-34) pg MCHC (32-36) g/dl RDW (11.5-14.5) % Plt Count (150-375) k/mm3 MPV (7.4-10.4) fl Immature Gran % (Auto) (0-0.5) % Neut % (Auto) (45.5-73.1) % Lymph % (Auto) (18.3-44.2) % [place] % (Auto) (2.6-8.5) % Eos % (Auto) (0-4.4) % Baso % (Auto) (0.2-1.2) % Lymph # (Auto) (0.9-3.2) K/mm3 [place] # (Auto) (0.1-0.6) K/mm3 Eos # (Auto) (0-0.3) K/mm3 Baso # (Auto) (0.0-0.1) K/mm3 Abs Immat Gran (auto) (0.00-0.031) K/mm3 Absolute Neuts (auto) (1.3-6.7) K/mm3 Absolute Nucleated RBC (0.0-0.012) K/mm3 Nucleated RBC % (0.0-0.2) % PT (11.1-14.7) Seconds INR APTT (22.3-36.8) Seconds Sodium Potassium Chloride Carbon Dioxide Anion Gap BUN Creatinine Estim Creat Clear Calc Estimated GFR Glucose Calcium Total Bilirubin 0.3 AST Cancelled 28 ALT Cancelled 18 Alkaline Phosphatase Cancelled Total Protein Albumin Beta HCG, Quant mIU/ML Blood Type Antibody Screen Crossmatch 03/12/25 03/12/25 03/12/25 Range/Units 15:05 15:05 15:05 WBC (4.5-10.0) K/mm3 RBC (4.2-5.4) M/mm3 Hgb (12.0-15.0) g/dL Hct (37.0-47.0) % MCV (80-100) fl MCH (26-34) pg MCHC (32-36) g/dl RDW (11.5-14.5) % Plt Count (150-375) k/mm3 MPV (7.4-10.4) fl Immature Gran % (Auto) (0-0.5) % Neut % (Auto) (45.5-73.1) % Lymph % (Auto) (18.3-44.2) % [place] % (Auto) (2.6-8.5) % Eos % (Auto) (0-4.4) % Baso % (Auto) (0.2-1.2) % Lymph # (Auto) (0.9-3.2) K/mm3 [place] # (Auto) (0.1-0.6) K/mm3 Eos # (Auto) (0-0.3) K/mm3 Baso # (Auto) (0.0-0.1) K/mm3 Abs Immat Gran (auto) (0.00-0.031) K/mm3 Absolute Neuts (auto) (1.3-6.7) K/mm3 Absolute Nucleated RBC (0.0-0.012) K/mm3 Nucleated RBC % (0.0-0.2) % PT (11.1-14.7) Seconds INR APTT (22.3-36.8) Seconds Sodium Potassium Chloride Carbon Dioxide Anion Gap BUN Creatinine Estim Creat Clear Calc Estimated GFR Glucose Calcium Total Bilirubin AST ALT Alkaline Phosphatase 54 Total Protein Cancelled 8.6 H Albumin Cancelled 4.9 Beta HCG, Quant 64396.00 mIU/ML Blood Type A Positive Antibody Screen Negative Crossmatch See Detail 03/12/25 Range/Units 16:59 WBC (4.5-10.0) K/mm3 RBC (4.2-5.4) M/mm3 Hgb 9.1 L (12.0-15.0) g/dL Hct 26.6 L (37.0-47.0) % MCV (80-100) fl MCH (26-34) pg MCHC (32-36) g/dl RDW (11.5-14.5) % Plt Count (150-375) k/mm3 MPV (7.4-10.4) fl Immature Gran % (Auto) (0-0.5) % Neut % (Auto) (45.5-73.1) % Lymph % (Auto) (18.3-44.2) % [place] % (Auto) (2.6-8.5) % Eos % (Auto) (0-4.4) % Baso % (Auto) (0.2-1.2) % Lymph # (Auto) (0.9-3.2) K/mm3 [place] # (Auto) (0.1-0.6) K/mm3 Eos # (Auto) (0-0.3) K/mm3 Baso # (Auto) (0.0-0.1) K/mm3 Abs Immat Gran (auto) (0.00-0.031) K/mm3 Absolute Neuts (auto) (1.3-6.7) K/mm3 Absolute Nucleated RBC (0.0-0.012) K/mm3 Nucleated RBC % (0.0-0.2) % PT (11.1-14.7) Seconds INR APTT (22.3-36.8) Seconds Sodium Potassium Chloride Carbon Dioxide Anion Gap BUN Creatinine Estim Creat Clear Calc Estimated GFR Glucose Calcium Total Bilirubin AST ALT Alkaline Phosphatase Total Protein Albumin Beta HCG, Quant mIU/ML Blood Type Antibody Screen Crossmatch <BEBO Christina - Last Filed: 03/12/25 19:16> Lab Results 03/12/25 03/12/25 03/12/25 Range/Units 15:05 15:05 15:05 WBC 6.6 (4.5-10.0) K/mm3 RBC 4.08 L (4.2-5.4) M/mm3 Hgb 11.7 L (12.0-15.0) g/dL Hct 34.8 L (37.0-47.0) % MCV 85.3 (80-100) fl MCH 28.7 (26-34) pg MCHC 33.6 (32-36) g/dl RDW 12.4 (11.5-14.5) % Plt Count 217 (150-375) k/mm3 MPV 11.1 H (7.4-10.4) fl Immature Gran % (Auto) 0.3 (0-0.5) % Neut % (Auto) 68.6 (45.5-73.1) % Lymph % (Auto) 24.9 (18.3-44.2) % [place] % (Auto) 4.4 (2.6-8.5) % Eos % (Auto) 1.5 (0-4.4) % Baso % (Auto) 0.3 (0.2-1.2) % Lymph # (Auto) 1.65 (0.9-3.2) K/mm3 [place] # (Auto) 0.3 (0.1-0.6) K/mm3 Eos # (Auto) 0.1 (0-0.3) K/mm3 Baso # (Auto) 0.0 (0.0-0.1) K/mm3 Abs Immat Gran (auto) 0.02 (0.00-0.031) K/mm3 Absolute Neuts (auto) 4.5 (1.3-6.7) K/mm3 Absolute Nucleated RBC 0.000 (0.0-0.012) K/mm3 Nucleated RBC % 0.0 (0.0-0.2) % PT 15.3 H (11.1-14.7) Seconds INR 1.2 APTT 29.8 (22.3-36.8) Seconds Sodium Cancelled 139 Potassium Cancelled 3.8 Chloride Cancelled Carbon Dioxide Anion Gap BUN Creatinine Estim Creat Clear Calc Estimated GFR Glucose Calcium Total Bilirubin AST ALT Alkaline Phosphatase Total Protein Albumin Beta HCG, Quant mIU/ML Blood Type Antibody Screen Crossmatch 03/12/25 03/12/25 03/12/25 Range/Units 15:05 15:05 15:05 WBC (4.5-10.0) K/mm3 RBC (4.2-5.4) M/mm3 Hgb (12.0-15.0) g/dL Hct (37.0-47.0) % MCV (80-100) fl MCH (26-34) pg MCHC (32-36) g/dl RDW (11.5-14.5) % Plt Count (150-375) k/mm3 MPV (7.4-10.4) fl Immature Gran % (Auto) (0-0.5) % Neut % (Auto) (45.5-73.1) % Lymph % (Auto) (18.3-44.2) % [place] % (Auto) (2.6-8.5) % Eos % (Auto) (0-4.4) % Baso % (Auto) (0.2-1.2) % Lymph # (Auto) (0.9-3.2) K/mm3 [place] # (Auto) (0.1-0.6) K/mm3 Eos # (Auto) (0-0.3) K/mm3 Baso # (Auto) (0.0-0.1) K/mm3 Abs Immat Gran (auto) (0.00-0.031) K/mm3 Absolute Neuts (auto) (1.3-6.7) K/mm3 Absolute Nucleated RBC (0.0-0.012) K/mm3 Nucleated RBC % (0.0-0.2) % PT (11.1-14.7) Seconds INR APTT (22.3-36.8) Seconds Sodium Potassium Chloride 105 Carbon Dioxide Cancelled 25 Anion Gap Cancelled 9 BUN Cancelled Creatinine Estim Creat Clear Calc Estimated GFR Glucose Calcium Total Bilirubin AST ALT Alkaline Phosphatase Total Protein Albumin Beta HCG, Quant mIU/ML Blood Type Antibody Screen Crossmatch 03/12/25 03/12/25 03/12/25 Range/Units 15:05 15:05 15:05 WBC (4.5-10.0) K/mm3 RBC (4.2-5.4) M/mm3 Hgb (12.0-15.0) g/dL Hct (37.0-47.0) % MCV (80-100) fl MCH (26-34) pg MCHC (32-36) g/dl RDW (11.5-14.5) % Plt Count (150-375) k/mm3 MPV (7.4-10.4) fl Immature Gran % (Auto) (0-0.5) % Neut % (Auto) (45.5-73.1) % Lymph % (Auto) (18.3-44.2) % [place] % (Auto) (2.6-8.5) % Eos % (Auto) (0-4.4) % Baso % (Auto) (0.2-1.2) % Lymph # (Auto) (0.9-3.2) K/mm3 [place] # (Auto) (0.1-0.6) K/mm3 Eos # (Auto) (0-0.3) K/mm3 Baso # (Auto) (0.0-0.1) K/mm3 Abs Immat Gran (auto) (0.00-0.031) K/mm3 Absolute Neuts (auto) (1.3-6.7) K/mm3 Absolute Nucleated RBC (0.0-0.012) K/mm3 Nucleated RBC % (0.0-0.2) % PT (11.1-14.7) Seconds INR APTT (22.3-36.8) Seconds Sodium Potassium Chloride Carbon Dioxide Anion Gap BUN 7 D Creatinine Cancelled 0.54 L Estim Creat Clear Calc Cancelled 124 Estimated GFR Cancelled Glucose Calcium Total Bilirubin AST ALT Alkaline Phosphatase Total Protein Albumin Beta HCG, Quant mIU/ML Blood Type Antibody Screen Crossmatch 03/12/25 03/12/25 03/12/25 Range/Units 15:05 15:05 15:05 WBC (4.5-10.0) K/mm3 RBC (4.2-5.4) M/mm3 Hgb (12.0-15.0) g/dL Hct (37.0-47.0) % MCV (80-100) fl MCH (26-34) pg MCHC (32-36) g/dl RDW (11.5-14.5) % Plt Count (150-375) k/mm3 MPV (7.4-10.4) fl Immature Gran % (Auto) (0-0.5) % Neut % (Auto) (45.5-73.1) % Lymph % (Auto) (18.3-44.2) % [place] % (Auto) (2.6-8.5) % Eos % (Auto) (0-4.4) % Baso % (Auto) (0.2-1.2) % Lymph # (Auto) (0.9-3.2) K/mm3 [place] # (Auto) (0.1-0.6) K/mm3 Eos # (Auto) (0-0.3) K/mm3 Baso # (Auto) (0.0-0.1) K/mm3 Abs Immat Gran (auto) (0.00-0.031) K/mm3 Absolute Neuts (auto) (1.3-6.7) K/mm3 Absolute Nucleated RBC (0.0-0.012) K/mm3 Nucleated RBC % (0.0-0.2) % PT (11.1-14.7) Seconds INR APTT (22.3-36.8) Seconds Sodium Potassium Chloride Carbon Dioxide Anion Gap BUN Creatinine Estim Creat Clear Calc Estimated GFR > 60 Glucose Cancelled 97 Calcium Cancelled 9.3 Total Bilirubin Cancelled AST ALT Alkaline Phosphatase Total Protein Albumin Beta HCG, Quant mIU/ML Blood Type Antibody Screen Crossmatch 03/12/25 03/12/25 03/12/25 Range/Units 15:05 15:05 15:05 WBC (4.5-10.0) K/mm3 RBC (4.2-5.4) M/mm3 Hgb (12.0-15.0) g/dL Hct (37.0-47.0) % MCV (80-100) fl MCH (26-34) pg MCHC (32-36) g/dl RDW (11.5-14.5) % Plt Count (150-375) k/mm3 MPV (7.4-10.4) fl Immature Gran % (Auto) (0-0.5) % Neut % (Auto) (45.5-73.1) % Lymph % (Auto) (18.3-44.2) % [place] % (Auto) (2.6-8.5) % Eos % (Auto) (0-4.4) % Baso % (Auto) (0.2-1.2) % Lymph # (Auto) (0.9-3.2) K/mm3 [place] # (Auto) (0.1-0.6) K/mm3 Eos # (Auto) (0-0.3) K/mm3 Baso # (Auto) (0.0-0.1) K/mm3 Abs Immat Gran (auto) (0.00-0.031) K/mm3 Absolute Neuts (auto) (1.3-6.7) K/mm3 Absolute Nucleated RBC (0.0-0.012) K/mm3 Nucleated RBC % (0.0-0.2) % PT (11.1-14.7) Seconds INR APTT (22.3-36.8) Seconds Sodium Potassium Chloride Carbon Dioxide Anion Gap BUN Creatinine Estim Creat Clear Calc Estimated GFR Glucose Calcium Total Bilirubin 0.3 AST Cancelled 28 ALT Cancelled 18 Alkaline Phosphatase Cancelled Total Protein Albumin Beta HCG, Quant mIU/ML Blood Type Antibody Screen Crossmatch 03/12/25 03/12/25 03/12/25 Range/Units 15:05 15:05 15:05 WBC (4.5-10.0) K/mm3 RBC (4.2-5.4) M/mm3 Hgb (12.0-15.0) g/dL Hct (37.0-47.0) % MCV (80-100) fl MCH (26-34) pg MCHC (32-36) g/dl RDW (11.5-14.5) % Plt Count (150-375) k/mm3 MPV (7.4-10.4) fl Immature Gran % (Auto) (0-0.5) % Neut % (Auto) (45.5-73.1) % Lymph % (Auto) (18.3-44.2) % [place] % (Auto) (2.6-8.5) % Eos % (Auto) (0-4.4) % Baso % (Auto) (0.2-1.2) % Lymph # (Auto) (0.9-3.2) K/mm3 [place] # (Auto) (0.1-0.6) K/mm3 Eos # (Auto) (0-0.3) K/mm3 Baso # (Auto) (0.0-0.1) K/mm3 Abs Immat Gran (auto) (0.00-0.031) K/mm3 Absolute Neuts (auto) (1.3-6.7) K/mm3 Absolute Nucleated RBC (0.0-0.012) K/mm3 Nucleated RBC % (0.0-0.2) % PT (11.1-14.7) Seconds INR APTT (22.3-36.8) Seconds Sodium Potassium Chloride Carbon Dioxide Anion Gap BUN Creatinine Estim Creat Clear Calc Estimated GFR Glucose Calcium Total Bilirubin AST ALT Alkaline Phosphatase 54 Total Protein Cancelled 8.6 H Albumin Cancelled 4.9 Beta HCG, Quant 18220.00 mIU/ML Blood Type A Positive Antibody Screen Negative Crossmatch See Detail 03/12/25 Range/Units 16:59 WBC (4.5-10.0) K/mm3 RBC (4.2-5.4) M/mm3 Hgb 9.1 L (12.0-15.0) g/dL Hct 26.6 L (37.0-47.0) % MCV (80-100) fl MCH (26-34) pg MCHC (32-36) g/dl RDW (11.5-14.5) % Plt Count (150-375) k/mm3 MPV (7.4-10.4) fl Immature Gran % (Auto) (0-0.5) % Neut % (Auto) (45.5-73.1) % Lymph % (Auto) (18.3-44.2) % [place] % (Auto) (2.6-8.5) % Eos % (Auto) (0-4.4) % Baso % (Auto) (0.2-1.2) % Lymph # (Auto) (0.9-3.2) K/mm3 [place] # (Auto) (0.1-0.6) K/mm3 Eos # (Auto) (0-0.3) K/mm3 Baso # (Auto) (0.0-0.1) K/mm3 Abs Immat Gran (auto) (0.00-0.031) K/mm3 Absolute Neuts (auto) (1.3-6.7) K/mm3 Absolute Nucleated RBC (0.0-0.012) K/mm3 Nucleated RBC % (0.0-0.2) % PT (11.1-14.7) Seconds INR APTT (22.3-36.8) Seconds Sodium Potassium Chloride Carbon Dioxide Anion Gap BUN Creatinine Estim Creat Clear Calc Estimated GFR Glucose Calcium Total Bilirubin AST ALT Alkaline Phosphatase Total Protein Albumin Beta HCG, Quant mIU/ML Blood Type Antibody Screen Crossmatch <Keesha Thomson MD - Last Filed: 03/12/25 19:27> Imaging Data Attestation: I personally reviewed and interpreted this imaging study as follows: <BEBO Christina - Last Filed: 03/12/25 19:16> Radiologist's impression: ITS Impressions Ultrasound 03/12/25 16:09 Impression: 1: No intrauterine gestational sac identified in patient with following beta-hCG levels and heavy vaginal bleeding. Findings most consistent with resolving or early loss. Recommend continue to follow quantitative beta-hCG levels to ensure complete resolution. If bleeding persists or beta-hCG levels plateau, consider [employer] evaluation. 2: Thickened endometrium which is heterogeneous measuring 2.4 cm. Findings suspicious for retained products of conception, blood products or endometrial sloughing. <BEBO Christina - Last Filed: 03/12/25 19:16> Critical Care Time Critical Care Time Critical Care Time: Yes <Keesha Thomson MD - Last Filed: 03/12/25 19:27> Total Critical Care Time: 31 <Keesha Thomson MD - Last Filed: 03/12/25 19:27> Discharge Plan Discharge Clinical Impression: Miscarriage, Episode of heavy vaginal bleeding <BEBO Christina - Last Filed: 03/12/25 19:16> Patient Disposition: Still a Patient <BEBO Christina - Last Filed: 03/12/25 19:16> Condition: Serious <BEBO Christina - Last Filed: 03/12/25 19:16>
[2025-03-12] MEDS: SODIUM CHLORIDE 0.9% IV 1,000 ML 999 ML IV CONT ×2 (16:14→17:07)
[2025-03-12] MEDS: ACETAMINOPHEN 500 MG TABLET 1000 MG PO (16:42)
[2025-03-12 17:06] LABS: Hematocrit 26.6 % (37.0-47.0); Hemoglobin 9.1 g/dL (12.0-15.0)
[2025-03-12] MEDS: SODIUM CHLORIDE 0.9% IV 250 ML 30 ML IV CONT (17:40)
--- NOTE | 2025-03-12 18:07 | WPCEDHO ---
ED Hand Off Checklist All vitals saved:yes IV Site documented:yes All med administrations documented:yes Triage Note Triage Note Pt to ed ambulatory co vag 03/12/25 14:41 bleeding, abd cramping. Pt is 10 weeks said she has been spotting for the last 5 weeks and the heavy bleeding started yesterday, and today was passing clothes and increased vag bleeding. Allergies Penicillins Allergy (Severe, Verified 02/20/25 13:58) Anaphylactic Shock Active Medications including assessments/comments Sodium Chloride (Normal Saline Iv) 250 mls @ 30 mls/hr IV CONT .Q8H20M STA Stop: 03/13/25 01:13 Last Admin: 03/12/25 17:40 Dose: 30 mls/hr Documented By: CB Infusion/Titration Document 03/12/25 17:40 CB (Rec: 03/12/25 17:40 CB [id number]) Intake IV Site Peripheral Access Right Proximal Antecubital Container Volume 250 Waste Amount 0 Dosing Infusion Rate 30 Cumulative Dose Not Applicable Increase/Decrease Started Elapsed Time Elapsed Time ( 0m minutes) Administered/Completed Medications Discontinued Medications Acetaminophen (Acetaminophen 500 Mg Tablet) 1,000 mg PO ONCE STA Stop: 03/12/25 16:24 Last Admin: 03/12/25 16:42 Dose: 1,000 mg Documented By: CB Sodium Chloride (Normal Saline Iv) 1,000 mls @ 999 mls/hr IV CONT .Q1H1M STA Stop: 03/12/25 17:08 Last Infusion: 03/12/25 17:05 Dose: Infused Documented By: Admin: 03/12/25 16:14 Dose: 999 mls/hr Documented By: CB Sodium Chloride (Normal Saline Iv) 1,000 mls @ 999 mls/hr IV CONT .Q1H1M STA Stop: 03/12/25 17:57 Last Infusion: 03/12/25 18:05 Dose: Infused Documented By: Admin: 03/12/25 17:07 Dose: 999 mls/hr Documented By: CB IV Miscellaneous Supplies (Tubing, Blood Set) Confirm Administered Dose 1 each XX .STK-MED ONE Stop: 03/12/25 17:23 Last Admin: 03/12/25 18:06 Dose: Not Given Documented By: CB Non-Admin Reason: blood Interventions/Assessments IV / Saline Lock, Insert Start: 03/12/25 14:17 Freq: Status: Active Protocol: Document 03/12/25 17:40 AZG (Rec: 03/12/25 17:41 AZG [id number]) IV Assessment Peripheral Access Left Antecubital IV Catheter Access Initiated IV Insertion Date 03/12/25 IV Insertion Time 17:41 Catheter Gauge 18 IV Site Assessment WNL IV Care and WNL Maintenance PA: Reproductive Assessment Start: 03/12/25 14:17 Freq: Status: Active Protocol: Document 03/12/25 14:49 AZG (Rec: 03/12/25 14:50 AZG [id number]) Reproductive Assessment Reproductive Abnormal Bleeding Symptoms Vaginal Discharge Large Amount Vaginal Discharge Red Color Vaginal Discharge None Odor Date of Last 12/28/24 Menstrual Period Now Yes Breast Feeding Now No 2 Para 1 Hx Hysterectomy No Hx Tubal Ligation No Vaginal Bleeding Assessment Associated Symptoms Abdominal Pain Amount With Clots Description Bright Red Pad/Tampon Changes 2 Per Hour Last Vital Signs Temperature 98.5 F 03/12/25 17:51 Pulse Rate 105 H 03/12/25 17:51 Respiratory Rate 16 03/12/25 17:51 Pulse Oximetry 100 03/12/25 17:51 Blood Pressure 110/73 03/12/25 17:51 Blood Pressure Mean 85 03/12/25 17:51 Blood Pressure Position Sitting 03/12/25 17:51 Oxygen Delivery Room Air 03/12/25 14:41 Weight 76.1 kg 03/12/25 14:41 Last Result - Abnormals Only RBC 4.08 M/mm3 (4.2-5.4) L 03/12/25 15:05 Hgb 9.1 g/dL (12.0-15.0) L 03/12/25 16:59 Hct 26.6 % (37.0-47.0) L 03/12/25 16:59 MPV 11.1 fl (7.4-10.4) H 03/12/25 15:05 PT 15.3 Seconds (11.1-14.7) H 03/12/25 15:05 Creatinine 0.54 mg/dL (0.7-1.0) L 03/12/25 15:05 Total Protein 8.6 g/dL (6.3-8.2) H 03/12/25 15:05 Crossmatch See Detail 03/12/25 15:05 Most Recent Suicide Severity Rating Suicide Severity Rating NO RISK INDICATED 03/12/25 14:41
--- NOTE | 2025-03-12 18:35 | PC.NURSE ---
This nurse spoke to ER nurse who expressed concern for the patient and the amount of bleeding. This nurse made the charge nurse aware. Charge nurse made the warehouse examiner aware. No further orders at this time. supervisor ordnance truck installation stated she was contacting ER doctors to be sure placement is still appropriate.
--- NOTE | 2025-03-12 20:01 | P.PNAN_ITS ---
Anes - Eval Pre Procedure Procedure: Operation Date: 03/12/25 20:00 Proposed Procedures p Suction D/C - Abran Clark MD Date/Time: 03/12/25 20:01 Pre Op Diagnosis: Vaginal Bleeding Patient Data Age: 24 Gender: F Height: 1.68 m Weight: 76.1 kg Last Vital Signs Temp 36.6 C 03/12/25 19:42 Pulse 90 03/12/25 19:42 Resp 18 03/12/25 19:42 BP 86/57 L 03/12/25 19:42 Pulse Ox 99 03/12/25 19:42 O2 Del Method Room Air 03/12/25 14:41 Allergies Allergy/AdvReac Type Severity Reaction Status Date / Time Penicillins Allergy Severe Anaphylactic Verified 02/20/25 13:58 Shock Home Medications ?Medication ?Instructions ?Recorded ?Confirmed ?Type No Home Medications 02/20/25 02/20/25 H istory Laboratory Tests 03/12/25 03/12/25 03/12/25 15:05 15:05 15:05 WBC 6.6 K/mm3 (4.5-10.0) RBC 4.08 L M/mm3 (4.2-5.4) Hgb 11.7 L g/dL (12.0-15.0) Hct 34.8 L % (37.0-47.0) MCV 85.3 fl (80-100) MCH 28.7 pg (26-34) MCHC 33.6 g/dl (32-36) RDW 12.4 % (11.5-14.5) Plt Count 217 k/mm3 (150-375) MPV 11.1 H fl (7.4-10.4) Immature Gran % (Auto) 0.3 % (0-0.5) Neut % (Auto) 68.6 % (45.5-73.1) Lymph % (Auto) 24.9 % (18.3-44.2) [place] % (Auto) 4.4 % (2.6-8.5) Eos % (Auto) 1.5 % (0-4.4) Baso % (Auto) 0.3 % (0.2-1.2) Lymph # (Auto) 1.65 K/mm3 (0.9-3.2) [place] # (Auto) 0.3 K/mm3 (0.1-0.6) Eos # (Auto) 0.1 K/mm3 (0-0.3) Baso # (Auto) 0.0 K/mm3 (0.0-0.1) Abs Immat Gran (auto) 0.02 K/mm3 (0.00-0.031) Absolute Neuts (auto) 4.5 K/mm3 (1.3-6.7) Absolute Nucleated RBC 0.000 K/mm3 (0.0-0.012) Nucleated RBC % 0.0 % (0.0-0.2) PT 15.3 H Seconds (11.1-14.7) INR 1.2 APTT 29.8 Seconds (22.3-36.8) Sodium Cancelled 139 mmol/L (137-145) Potassium Cancelled 3.8 mmol/L (3.4-5.0) Chloride Cancelled Carbon Dioxide Anion Gap BUN Creatinine Estim Creat Clear Calc Estimated GFR Glucose Calcium Total Bilirubin AST ALT Alkaline Phosphatase Total Protein Albumin Beta HCG, Quant Blood Type Antibody Screen Crossmatch 03/12/25 03/12/25 03/12/25 15:05 15:05 15:05 WBC RBC Hgb Hct MCV MCH MCHC RDW Plt Count MPV Immature Gran % (Auto) Neut % (Auto) Lymph % (Auto) [place] % (Auto) Eos % (Auto) Baso % (Auto) Lymph # (Auto) [place] # (Auto) Eos # (Auto) Baso # (Auto) Abs Immat Gran (auto) Absolute Neuts (auto) Absolute Nucleated RBC Nucleated RBC % PT INR APTT Sodium Potassium Chloride 105 mmol/L (98-107) Carbon Dioxide Cancelled 25 mmol/L (22-30) Anion Gap Cancelled 9 mmol/L (4-12) BUN Cancelled Creatinine Estim Creat Clear Calc Estimated GFR Glucose Calcium Total Bilirubin AST ALT Alkaline Phosphatase Total Protein Albumin Beta HCG, Quant Blood Type Antibody Screen Crossmatch 03/12/25 03/12/25 03/12/25 15:05 15:05 15:05 WBC RBC Hgb Hct MCV MCH MCHC RDW Plt Count MPV Immature Gran % (Auto) Neut % (Auto) Lymph % (Auto) [place] % (Auto) Eos % (Auto) Baso % (Auto) Lymph # (Auto) [place] # (Auto) Eos # (Auto) Baso # (Auto) Abs Immat Gran (auto) Absolute Neuts (auto) Absolute Nucleated RBC Nucleated RBC % PT INR APTT Sodium Potassium Chloride Carbon Dioxide Anion Gap BUN 7 D mg/dL (7-17) Creatinine Cancelled 0.54 L mg/dL (0.7-1.0) Estim Creat Clear Calc Cancelled 124 ml/min Estimated GFR Cancelled Glucose Calcium Total Bilirubin AST ALT Alkaline Phosphatase Total Protein Albumin Beta HCG, Quant Blood Type Antibody Screen Crossmatch 03/12/25 03/12/25 03/12/25 15:05 15:05 15:05 WBC RBC Hgb Hct MCV MCH MCHC RDW Plt Count MPV Immature Gran % (Auto) Neut % (Auto) Lymph % (Auto) [place] % (Auto) Eos % (Auto) Baso % (Auto) Lymph # (Auto) [place] # (Auto) Eos # (Auto) Baso # (Auto) Abs Immat Gran (auto) Absolute Neuts (auto) Absolute Nucleated RBC Nucleated RBC % PT INR APTT Sodium Potassium Chloride Carbon Dioxide Anion Gap BUN Creatinine Estim Creat Clear Calc Estimated GFR > 60 (59 - ) Glucose Cancelled 97 mg/dL (65-110) Calcium Cancelled 9.3 mg/dL (8.4-10.2) Total Bilirubin Cancelled AST ALT Alkaline Phosphatase Total Protein Albumin Beta HCG, Quant Blood Type Antibody Screen Crossmatch 03/12/25 03/12/25 03/12/25 15:05 15:05 15:05 WBC RBC Hgb Hct MCV MCH MCHC RDW Plt Count MPV Immature Gran % (Auto) Neut % (Auto) Lymph % (Auto) [place] % (Auto) Eos % (Auto) Baso % (Auto) Lymph # (Auto) [place] # (Auto) Eos # (Auto) Baso # (Auto) Abs Immat Gran (auto) Absolute Neuts (auto) Absolute Nucleated RBC Nucleated RBC % PT INR APTT Sodium Potassium Chloride Carbon Dioxide Anion Gap BUN Creatinine Estim Creat Clear Calc Estimated GFR Glucose Calcium Total Bilirubin 0.3 mg/dL (0.2-1.3) AST Cancelled 28 U/L (14-36) ALT Cancelled 18 U/L (6-35) Alkaline Phosphatase Cancelled Total Protein Albumin Beta HCG, Quant Blood Type Antibody Screen Crossmatch 03/12/25 03/12/25 03/12/25 15:05 15:05 15:05 WBC RBC Hgb Hct MCV MCH MCHC RDW Plt Count MPV Immature Gran % (Auto) Neut % (Auto) Lymph % (Auto) [place] % (Auto) Eos % (Auto) Baso % (Auto) Lymph # (Auto) [place] # (Auto) Eos # (Auto) Baso # (Auto) Abs Immat Gran (auto) Absolute Neuts (auto) Absolute Nucleated RBC Nucleated RBC % PT INR APTT Sodium Potassium Chloride Carbon Dioxide Anion Gap BUN Creatinine Estim Creat Clear Calc Estimated GFR Glucose Calcium Total Bilirubin AST ALT Alkaline Phosphatase 54 U/L (38-126) Total Protein Cancelled 8.6 H g/dL (6.3-8.2) Albumin Cancelled 4.9 g/dL (3.5-5.1) Beta HCG, Quant 06866.00 mIU/ML Blood Type A Positive Antibody Screen Negative Crossmatch See Detail 03/12/25 16:59 WBC RBC Hgb 9.1 L g/dL (12.0-15.0) Hct 26.6 L % (37.0-47.0) MCV MCH MCHC RDW Plt Count MPV Immature Gran % (Auto) Neut % (Auto) Lymph % (Auto) [place] % (Auto) Eos % (Auto) Baso % (Auto) Lymph # (Auto) [place] # (Auto) Eos # (Auto) Baso # (Auto) Abs Immat Gran (auto) Absolute Neuts (auto) Absolute Nucleated RBC Nucleated RBC % PT INR APTT Sodium Potassium Chloride Carbon Dioxide Anion Gap BUN Creatinine Estim Creat Clear Calc Estimated GFR Glucose Calcium Total Bilirubin AST ALT Alkaline Phosphatase Total Protein Albumin Beta HCG, Quant Blood Type Antibody Screen Crossmatch Patient hx anesthesia problems: none Family hx anesthesia problems: none Results Review: All pre-operative results and documents have been reviewed as part of the pre- operative evaluation. [facility] Past Medical History Medical History IUP (intrauterine ), incidental Obesity Suppression of menses Social History Social History Smoking status: Former smoker Tobacco type: cigarettes and e-cigarettes/vaping Smokeless tobacco user: other Smoking end date: 07/17/23 Alcohol intake: never Substance use: never Substance use type: does not use Lack of Transportation: No Lack of Food: Never True Current Housing: I Have Housing Concerned About Future Housing: No Difficulty Paying Gas/Electric Bills: No Difficulty Paying for Meds: No Currently Unemployed: No Education: Associate Degree Difficulty w/ Childcare or Family Care: No Living arrangements: with family Gender identity (if verbalized by the patient): Female Sexual Orientation (if Verbalized by the Patient): Straight or Heterosexual Spiritual care concerns: Yes Exam Day of Procedure 03/12/25 20:01
--- NOTE | 2025-03-12 20:02 | S_PTH ---
PATIENT: Jade Stewart LOC: [facility] U#:[id number] AGE/SX: 24/F ROOM: 207 RE03/12/[address]: Abran Clark MD : 2000 BED: 01 DIS: 03/13/2025 SPEC #: [id number] RECD: 03/17/25 08:16 STATUS: MILIND REQ #: [id number] MARGARITA: 03/12/25 20:[address]: Gildardo Greer DEPT: [facility] Surgical RECD BY: Isa Elias ENTERED: 03/17/25 08:16 SP TYPE: Surgical OTHR DR: MD Florecita Howard MD Tissues: A - Uterine Contents B - Products of Conception Procedures: Hematoxylin and Eosin Stain Gross and Microscopic Level 4
--- NOTE | 2025-03-12 20:06 | WPDANESEFPP ---
Anes - Eval Final PreProcedure Day of Procedure 03/12/25 20:06 Patient weight: normal Heart: regular rate and rhythm Lungs: clear to auscultation Airway: Mallampati scale class II Neurological: alert and oriented Last oral intake: >/= 8 hours ASA classification: II Emergent: yes Anesthetic plan: proceed Anesthesia type and monitoring: general Results Review: All pre-operative results and documents have been reviewed as part of the pre-operative evaluation. Informed Consent: The patient's anesthetic plan and its attendant risks and benefits were discussed with the patient/family/POA. Questions were solicited and answers provided to the satisfaction of the patient/family/POA.
--- NOTE | 2025-03-12 20:22 | P.HP_ITS ---
H&P: HPI History of Present Illness Date/Time: 03/12/25 20:22 Chief Complaint: Bleeding Narrative: 24 y/o at 10w5d who developed heavy bleeding this afternoon. US showed no embryo, but heterogeneous tissue. HCG is 10,000, which is a decrease. She is RH pos. Bleeding has been heavy in the ED. Her hgb dropped. She received 1 unit PRBC. Since bleeding has persisted, we have offered her a suction D&C. Review of Systems Review of Systems: All systems reviewed & are unremarkable except as noted in HPI and below PMFSH Past Medical History Medical History IUP (intrauterine ), incidental Obesity Suppression of menses Social History Social History Smoking status: Former smoker Tobacco type: cigarettes and e-cigarettes/vaping Smokeless tobacco user: other Smoking end date: 07/17/23 Alcohol intake: never Substance use: never Substance use type: does not use Lack of Transportation: No Lack of Food: Never True Current Housing: I Have Housing Concerned About Future Housing: No Difficulty Paying Gas/Electric Bills: No Difficulty Paying for Meds: No Currently Unemployed: No Education: Associate Degree Difficulty w/ Childcare or Family Care: No Living arrangements: with family Gender identity (if verbalized by the patient): Female Sexual Orientation (if Verbalized by the Patient): Straight or Heterosexual Spiritual care concerns: Yes Meds Home Medications and Allergies Home Medications ?Medication ?Instructions ?Recorded ?Confirmed ?Type No Home Medications 02/20/25 02/20/25 H istory Allergies Allergy/AdvReac Type Severity Reaction Status Date / Time Penicillins Allergy Severe Anaphylactic Verified 02/20/25 13:58 Shock Vital Signs Vital Signs - 24 hr 03/12/25 14:41 03/12/25 15:53 03/12/25 16:14 Temperature 99.2 F Pulse Rate 94 131 H 109 H Respiratory Rate 17 16 20 Blood Pressure 126/91 H 97/76 L 127/83 Pulse Oximetry 100 100 100 Oxygen Delivery Room Air 03/12/25 17:32 03/12/25 17:45 03/12/25 17:51 Temperature 97.7 F 98.5 F Pulse Rate 107 H 114 H 105 H Respiratory Rate 13 16 16 Blood Pressure 110/76 108/69 110/73 Pulse Oximetry 100 100 100 Oxygen Delivery 03/12/25 18:51 03/12/25 19:05 03/12/25 19:42 Temperature 98.4 F 97.8 F Pulse Rate 110 H 113 H 90 Respiratory Rate 16 20 18 Blood Pressure 96/68 L 105/74 86/57 L Pulse Oximetry 98 100 99 Oxygen Delivery Exam Const: Orientation/consciousness: patient oriented x3 Other: Well-developed, well-nourished female in no acute distress. GI: Other: ABD: Soft, nontender, nondistended. No guarding or rebound tenderness. No hepatosplenomegaly. : Other: Deferred to OR Extrem: Other: Extremities: nontender with no edema Psych: Mental Status: mental status grossly normal Affect: normal affect H&P: Results Labs Labs: Short CBC 03/12/25 03/12/25 Range/Units 15:05 16:59 WBC 6.6 (4.5-10.0) K/mm3 Hgb 11.7 L 9.1 L (12.0-15.0) g/dL Hct 34.8 L 26.6 L (37.0-47.0) % Plt Count 217 (150-375) k/mm3 BMP 03/12/25 03/12/25 03/12/25 15:05 15:05 15:05 Sodium Cancelled 139 Potassium Cancelled 3.8 Chloride Cancelled Carbon Dioxide BUN Creatinine Glucose Calcium 03/12/25 03/12/25 03/12/25 15:05 15:05 15:05 Sodium Potassium Chloride 105 Carbon Dioxide Cancelled 25 BUN Cancelled 7 D Creatinine Cancelled Glucose Calcium 03/12/25 03/12/25 03/12/25 15:05 15:05 15:05 Sodium Potassium Chloride Carbon Dioxide BUN Creatinine 0.54 L Glucose Cancelled 97 Calcium Cancelled 9.3 Liver Function 03/12/25 03/12/25 03/12/25 Range/Units 15:05 15:05 15:05 Total Bilirubin Cancelled 0.3 AST Cancelled 28 ALT Cancelled Alkaline Phosphatase Albumin 03/12/25 03/12/25 03/12/25 Range/Units 15:05 15:05 15:05 Total Bilirubin AST ALT 18 Alkaline Phosphatase Cancelled 54 Albumin Cancelled 4.9 Assessment and Plan Assessment and plan (1) Miscarriage: Code(s): O03.9 - Complete or unspecified spontaneous without complication Status: Acute Assessment and Plan: A: Spontaneous with heavy bleeding. P: Offered dilation and suction curettage. She understands risks of surgery to include risks of anesthesia, risks of pain, infection, bleeding, blood products, thromboembolic phenomena and damage to adjacent structures such as bowel, bladder, ureters, blood vessels and nerves. She understands all these risks and elects to proceed with surgery. There was a language barrier, but her partner translated and the patient indicates good understanding and has had her questions answered.
--- NOTE | 2025-03-12 20:27 | WPDHPUPDATE1 ---
History and Physical Update Update Date/Time: 03/12/25 20:27 History and Physical has been reviewed, including an updated exam of the patient. There are NO changes in the patient's condition. Risks, benefits, and alternatives have been discussed and questions answered. Patient agrees to proceed with procedure.
--- NOTE | 2025-03-12 20:30 | PC.NURSE ---
patient in OR currently. chart with PLATE PAINTER APPRENTICE. Asked OR charge preparation technician to inform ED of patient election to Disposition-Notification Form. Products of conception labeled and taken to lab, awaiting OR notification of patient decision to call bleacher kraft pulp.
[2025-03-12] MEDS: LIDOCAINE 1% LOCAL INJ 10 ML VIAL INFILTRATE (20:38)
--- NOTE | 2025-03-12 20:43 | W.PM.PROC2 ---
Procedure Note - Detailed Date of Procedure 03/12/25 Pre-op Diagnosis Spontaneous with heavy vaginal bleeding Post-op Diagnosis Same Procedure Performed Dilation and suction curettage Surgeon Abran Clark MD Anesthesia MAC and Local (1% lidocaine) Findings Clotted blood in the vagina. Cervix was dilated. Products of conception were noted. Description of Procedure The patient was taken to the operating room where she was prepared and draped in the usual sterile fashion in the dorsal lithotomy position. The bladder was drained with a red rubber catheter. A sterile speculum was placed into the vagina. A large clot was evacuated. The anterior lip of the cervix was grasped with a single-tooth tenaculum. Ten mL of 1% lidocaine was administered in a paracervical block. The cervix did not require dilation - an 8 mm dilator could be passed. The 8mm curved tip suction curette was advanced. Suction curettage was performed and products of conception were aspirated. Sharp curettage was then performed until a good uterine cry was noted. A final pass with the suction curette was made. The tenaculum was removed. Hemostasis was excellent. Sponge, lap, needle and instrument counts were correct. The patient was taken to the recovery room in stable condition. I was present and scrubbed for the entire procedure. Estimated Blood Loss 200 Drains No Packing No Pathology Yes (Endometrial curettings) Complications None Condition Stable Disposition PACU [facility] Billing Surgery - Charge Forward: Surgery Billing
[2025-03-12] MEDS: LACTATED RINGERS 1,000 ML 30 ML IV CONT (20:45)
[2025-03-12 21:15] LABS: Hematocrit 25.6 % (37.0-47.0); Hemoglobin 8.6 g/dL (12.0-15.0)
--- NOTE | 2025-03-12 22:00 | ADMGEN ---
This patient, Jade Stewart, was admitted to IMU Room 207-01. Patient/family oriented to hospital policies and general routines including ID bracelet, bed and alarms, visiting hours, pain management, procedures, bathroom and other care routines, personal items, smoking policy, room service/diet, and visiting hours. Information on how to activate the Rapid Response Team has been discussed. Patient/Family are encouraged to report perceived risks to care and to ask questions if they do not understand what they are told or what they should do.
--- NOTE | 2025-03-12 22:13 | PC.NURSE ---
Addendum entered by Lenard Monge RN 03/12/25 22:17: Disposition-Notification Form completed in OR, patient elected to have hospital handle the disposition of the remains. Original Note: [facility] Coroner personnel research psychologist notified of demise at [id number]. states okay to release.
[2025-03-13] VITALS (9 sets, daily range): BP systolic 110–129; BP diastolic 58–69; PULSE 101–113; RESP 15–20; TEMP 36.6–37.1; O2SAT 100
[2025-03-13 04:14] LABS: Hematocrit 22.0 % (37.0-47.0); Hemoglobin 7.4 g/dL (12.0-15.0); Immature Granulocyte Percent A 0.4 % (0-0.5); Lymphocytes Absolute Auto 2.02 K/mm3 (0.9-3.2); Mean Corpuscular HGB Conc 33.6 g/dl (32-36); Mean Corpuscular Hemoglobin 29.7 pg (26-34); Mean Corpuscular Volume 88.4 fl (80-100); Nucleated Red Blood Cells Absolute Auto 0.000 K/mm3 (0.0-0.012); Nucleated Red Blood Cells Perc 0.0 % (0.0-0.2); Platelet Count Result 185 k/mm3 (150-375); Red Blood Count 2.49 M/mm3 (4.2-5.4); White Blood Count 7.4 K/mm3 (4.5-10.0)
[2025-03-13] MEDS: ACETAMINOPHEN 500 MG TABLET 1000 MG PO ×2 (06:11→12:03)
[2025-03-13] MEDS: IBUPROFEN 600 MG TABLET PO ×2 (06:11→12:03)
--- NOTE | 2025-03-13 12:05 | P.PNOB_ITS ---
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 She is doing well. P: Home today. Precautions / instructions reviewed. F/u office in 2 weeks. 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 Cramping is well-managed with ibuprofen and Tylenol. She'd like to go home. Review of Systems 2 Review of Systems: All systems reviewed & are unremarkable except as noted in HPI and below Exam 2 Narrative: AVSS I/O OK ABD soft, nontender. 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 GLASS INSTALLER - PN: Obj Data Vital Signs Vital Signs: Vital Signs - 24 hr 03/12/25 14:41 03/12/25 15:53 03/12/25 16:14 Temperature 99.2 F Pulse Rate 94 131 H 109 H Respiratory Rate 17 16 20 Blood Pressure 126/91 H 97/76 L 127/83 Pulse Oximetry 100 100 100 Oxygen Delivery Room Air Oxygen Flow Rate 03/12/25 17:32 03/12/25 17:45 03/12/25 17:51 Temperature 97.7 F 98.5 F Pulse Rate 107 H 114 H 105 H Respiratory Rate 13 16 16 Blood Pressure 110/76 108/69 110/73 Pulse Oximetry 100 100 100 Oxygen Delivery Oxygen Flow Rate 03/12/25 18:51 03/12/25 19:05 03/12/25 19:42 Temperature 98.4 F 97.8 F Pulse Rate 110 H 113 H 90 Respiratory Rate 16 20 18 Blood Pressure 96/68 L 105/74 86/57 L Pulse Oximetry 98 100 99 Oxygen Delivery Oxygen Flow Rate 03/12/25 20:45 03/12/25 21:00 03/12/25 21:15 Temperature 97.8 F Pulse Rate 98 106 H 102 H Respiratory Rate 12 18 18 Blood Pressure 108/70 105/70 109/65 Pulse Oximetry 100 100 100 Oxygen Delivery Simple Face Mask Room Air Room Air Oxygen Flow Rate 8 03/12/25 21:30 03/12/25 21:39 03/12/25 22:00 Temperature 97.3 F L Pulse Rate 103 H 100 105 H Respiratory Rate 16 12 Blood Pressure 111/68 111/72 Pulse Oximetry 100 100 Oxygen Delivery Room Air Room Air Oxygen Flow Rate 03/12/25 22:04 03/12/25 22:26 03/13/25 00:00 Temperature 98.8 F Pulse Rate 103 H Respiratory Rate 16 Blood Pressure 115/62 Pulse Oximetry 100 Oxygen Delivery Room Air Room Air Oxygen Flow Rate 03/13/25 00:00 03/13/25 00:12 03/13/25 02:00 Temperature 98.6 F Pulse Rate 107 H 101 H 111 H Respiratory Rate 15 Blood Pressure 110/69 Pulse Oximetry 100 Oxygen Delivery Oxygen Flow Rate 03/13/25 04:00 03/13/25 04:00 03/13/25 05:16 Temperature 98.7 F Pulse Rate 101 H 107 H Respiratory Rate 16 Blood Pressure 115/68 Pulse Oximetry 100 Oxygen Delivery Room Air Oxygen Flow Rate 03/13/25 06:00 03/13/25 08:00 03/13/25 08:00 Temperature 97.8 F Pulse Rate 113 H 104 H 109 H Respiratory Rate 20 Blood Pressure 129/58 L Pulse Oximetry 100 Oxygen Delivery Oxygen Flow Rate 03/13/25 10:00 Temperature Pulse Rate 113 H Respiratory Rate Blood Pressure Pulse Oximetry Oxygen Delivery Oxygen Flow Rate Intake/Output Intake/Output: Intake & Output 03/10/25 03/11/25 03/12/25 03/13/25 23:59 23:59 23:59 23:59 Intake Total 2550 240 Balance 2550 240 Meds/Results Medications: Active Medications Generic Name Dose Route Start Last Admin Trade Name Freq PRN Reason Stop Dose Admin Acetaminophen 1,000 mg 03/13/25 00:00 03/13/25 12:03 Acetaminophen 500 Mg Tablet PO 1,000 mg Q6HR SALVATORE Administration Dextrose/Sodium Chloride 1,000 mls @ 125 mls/hr 03/12/25 21:44 03/13/25 04:39 Dextrose 5% Sodium Chloride 0.45% IV CONT Not Given .Q8H SALVATORE Ibuprofen 600 mg 03/13/25 00:00 03/13/25 12:03 Ibuprofen 600 Mg Tablet PO 600 mg Q6HR SALVATORE Administration Ondansetron HCl 4 mg 03/12/25 21:44 Ondansetron Inj 4 Mg/2 Ml Vial IV PUSH Q6H PRN Nausea And Vomiting Radiology Results: ITS Impressions Ultrasound 03/12/25 16:09 Impression: 1: No intrauterine gestational sac identified in patient with following beta-hCG levels and heavy vaginal bleeding. Findings most consistent with resolving or early loss. Recommend continue to follow quantitative beta-hCG levels to ensure complete resolution. If bleeding persists or beta-hCG levels plateau, consider APPLICATION PROCESSOR evaluation. 2: Thickened endometrium which is heterogeneous measuring 2.4 cm. Findings suspicious for retained products of conception, blood products or endometrial sloughing. Labs 03/13/25 03:56 03/12/25 15:05 Labs: Laboratory Results - last 24 hr 03/12/25 03/12/25 03/12/25 15:05 15:05 15:05 WBC 6.6 RBC 4.08 L Hgb 11.7 L Hct 34.8 L MCV 85.3 MCH 28.7 MCHC 33.6 RDW 12.4 Plt Count 217 MPV 11.1 H Immature Gran % (Auto) 0.3 Neut % (Auto) 68.6 Lymph % (Auto) 24.9 [place] % (Auto) 4.4 Eos % (Auto) 1.5 Baso % (Auto) 0.3 Lymph # (Auto) 1.65 [place] # (Auto) 0.3 Eos # (Auto) 0.1 Baso # (Auto) 0.0 Abs Immat Gran (auto) 0.02 Absolute Neuts (auto) 4.5 Absolute Nucleated RBC 0.000 Nucleated RBC % 0.0 PT 15.3 H INR 1.2 APTT 29.8 Sodium Cancelled 139 Potassium Cancelled 3.8 Chloride Cancelled Carbon Dioxide Anion Gap BUN Creatinine Estim Creat Clear Calc Estimated GFR Glucose Calcium Total Bilirubin AST ALT Alkaline Phosphatase Total Protein Albumin Beta HCG, Quant Blood Type Antibody Screen Crossmatch 03/12/25 03/12/25 03/12/25 15:05 15:05 15:05 WBC RBC Hgb Hct MCV MCH MCHC RDW Plt Count MPV Immature Gran % (Auto) Neut % (Auto) Lymph % (Auto) [place] % (Auto) Eos % (Auto) Baso % (Auto) Lymph # (Auto) [place] # (Auto) Eos # (Auto) Baso # (Auto) Abs Immat Gran (auto) Absolute Neuts (auto) Absolute Nucleated RBC Nucleated RBC % PT INR APTT Sodium Potassium Chloride 105 Carbon Dioxide Cancelled 25 Anion Gap Cancelled 9 BUN Cancelled Creatinine Estim Creat Clear Calc Estimated GFR Glucose Calcium Total Bilirubin AST ALT Alkaline Phosphatase Total Protein Albumin Beta HCG, Quant Blood Type Antibody Screen Crossmatch 03/12/25 03/12/25 03/12/25 15:05 15:05 15:05 WBC RBC Hgb Hct MCV MCH MCHC RDW Plt Count MPV Immature Gran % (Auto) Neut % (Auto) Lymph % (Auto) [place] % (Auto) Eos % (Auto) Baso % (Auto) Lymph # (Auto) [place] # (Auto) Eos # (Auto) Baso # (Auto) Abs Immat Gran (auto) Absolute Neuts (auto) Absolute Nucleated RBC Nucleated RBC % PT INR APTT Sodium Potassium Chloride Carbon Dioxide Anion Gap BUN 7 D Creatinine Cancelled 0.54 L Estim Creat Clear Calc Cancelled 124 Estimated GFR Cancelled Glucose Calcium Total Bilirubin AST ALT Alkaline Phosphatase Total Protein Albumin Beta HCG, Quant Blood Type Antibody Screen Crossmatch 03/12/25 03/12/25 03/12/25 15:05 15:05 15:05 WBC RBC Hgb Hct MCV MCH MCHC RDW Plt Count MPV Immature Gran % (Auto) Neut % (Auto) Lymph % (Auto) [place] % (Auto) Eos % (Auto) Baso % (Auto) Lymph # (Auto) [place] # (Auto) Eos # (Auto) Baso # (Auto) Abs Immat Gran (auto) Absolute Neuts (auto) Absolute Nucleated RBC Nucleated RBC % PT INR APTT Sodium Potassium Chloride Carbon Dioxide Anion Gap BUN Creatinine Estim Creat Clear Calc Estimated GFR > 60 Glucose Cancelled 97 Calcium Cancelled 9.3 Total Bilirubin Cancelled AST ALT Alkaline Phosphatase Total Protein Albumin Beta HCG, Quant Blood Type Antibody Screen Crossmatch 03/12/25 03/12/25 03/12/25 15:05 15:05 15:05 WBC RBC Hgb Hct MCV MCH MCHC RDW Plt Count MPV Immature Gran % (Auto) Neut % (Auto) Lymph % (Auto) [place] % (Auto) Eos % (Auto) Baso % (Auto) Lymph # (Auto) [place] # (Auto) Eos # (Auto) Baso # (Auto) Abs Immat Gran (auto) Absolute Neuts (auto) Absolute Nucleated RBC Nucleated RBC % PT INR APTT Sodium Potassium Chloride Carbon Dioxide Anion Gap BUN Creatinine Estim Creat Clear Calc Estimated GFR Glucose Calcium Total Bilirubin 0.3 AST Cancelled 28 ALT Cancelled 18 Alkaline Phosphatase Cancelled Total Protein Albumin Beta HCG, Quant Blood Type Antibody Screen Crossmatch 03/12/25 03/12/25 03/12/25 15:05 15:05 15:05 WBC RBC Hgb Hct MCV MCH MCHC RDW Plt Count MPV Immature Gran % (Auto) Neut % (Auto) Lymph % (Auto) [place] % (Auto) Eos % (Auto) Baso % (Auto) Lymph # (Auto) [place] # (Auto) Eos # (Auto) Baso # (Auto) Abs Immat Gran (auto) Absolute Neuts (auto) Absolute Nucleated RBC Nucleated RBC % PT INR APTT Sodium Potassium Chloride Carbon Dioxide Anion Gap BUN Creatinine Estim Creat Clear Calc Estimated GFR Glucose Calcium Total Bilirubin AST ALT Alkaline Phosphatase 54 Total Protein Cancelled 8.6 H Albumin Cancelled 4.9 Beta HCG, Quant 77260.00 Blood Type A Positive Antibody Screen Negative Crossmatch See Detail 03/12/25 03/12/25 03/13/25 16:59 21:09 03:56 WBC 7.4 RBC 2.49 L Hgb 9.1 L 8.6 L 7.4 L Hct 26.6 L 25.6 L 22.0 L MCV 88.4 MCH 29.7 MCHC 33.6 RDW 12.7 Plt Count 185 MPV 11.2 H Immature Gran % (Auto) 0.4 Neut % (Auto) 66.8 Lymph % (Auto) 27.2 [place] % (Auto) 4.8 Eos % (Auto) 0.4 Baso % (Auto) 0.4 Lymph # (Auto) 2.02 [place] # (Auto) 0.4 Eos # (Auto) 0.0 Baso # (Auto) 0.0 Abs Immat Gran (auto) 0.03 Absolute Neuts (auto) 5.0 Absolute Nucleated RBC 0.000 Nucleated RBC % 0.0 PT INR APTT Sodium Potassium Chloride Carbon Dioxide Anion Gap BUN Creatinine Estim Creat Clear Calc Estimated GFR Glucose Calcium Total Bilirubin AST ALT Alkaline Phosphatase Total Protein Albumin Beta HCG, Quant Blood Type Antibody Screen Crossmatch
--- NOTE | 2025-03-13 12:08 | P.DS_ITS ---
DS: Admitting Diagnosis Discharge Date 03/13/25 Admitting Diagnosis SAB DS: Discharge Diagnosis Discharge Diagnosis (1) Miscarriage: Code(s): O03.9 - Complete or unspecified spontaneous without complication Status: Acute DS: Summary Hospital Course Hospital Course: 24 y/o at 10w5d gestation presented to the ED with heavy bleeding. She received 1 unit PRBC and underwent suction D&C. She was observed overnight and was doing well the next morning, asking to go home. Time Spent with Patient Time attestation: Total time spent providing and/or coordinating discharge services: DS: Data Data Completed and Pending Pending studies at discharge: Pending at discharge 03/12/25 20:02 Surgical [PTH] Routine 03/12/25 20:36 Surgical [PTH] Routine Labs on day of discharge: Labs from last 24 hours 03/13/25 03/12/25 03/12/25 03:56 21:09 16:59 WBC 7.4 RBC 2.49 L Hgb 7.4 L 8.6 L 9.1 L Hct 22.0 L 25.6 L 26.6 L MCV 88.4 MCH 29.7 MCHC 33.6 RDW 12.7 Plt Count 185 MPV 11.2 H Immature Gran % (Auto) 0.4 Neut % (Auto) 66.8 Lymph % (Auto) 27.2 [place] % (Auto) 4.8 Eos % (Auto) 0.4 Baso % (Auto) 0.4 Lymph # (Auto) 2.02 [place] # (Auto) 0.4 Eos # (Auto) 0.0 Baso # (Auto) 0.0 Abs Immat Gran (auto) 0.03 Absolute Neuts (auto) 5.0 Absolute Nucleated RBC 0.000 Nucleated RBC % 0.0 PT INR APTT Sodium Potassium Chloride Carbon Dioxide Anion Gap BUN Creatinine Estim Creat Clear Calc Estimated GFR Glucose Calcium Total Bilirubin AST ALT Alkaline Phosphatase Total Protein Albumin Beta HCG, Quant Blood Type Antibody Screen Crossmatch 03/12/25 03/12/25 03/12/25 15:05 15:05 15:05 WBC RBC Hgb Hct MCV MCH MCHC RDW Plt Count MPV Immature Gran % (Auto) Neut % (Auto) Lymph % (Auto) [place] % (Auto) Eos % (Auto) Baso % (Auto) Lymph # (Auto) [place] # (Auto) Eos # (Auto) Baso # (Auto) Abs Immat Gran (auto) Absolute Neuts (auto) Absolute Nucleated RBC Nucleated RBC % PT INR APTT Sodium Potassium Chloride Carbon Dioxide Anion Gap BUN Creatinine Estim Creat Clear Calc Estimated GFR Glucose Calcium Total Bilirubin AST ALT Alkaline Phosphatase 54 Total Protein 8.6 H Cancelled Albumin 4.9 Cancelled Beta HCG, Quant 70445.00 Blood Type A Positive Antibody Screen Negative Crossmatch See Detail 03/12/25 03/12/25 03/12/25 15:05 15:05 15:05 WBC RBC Hgb Hct MCV MCH MCHC RDW Plt Count MPV Immature Gran % (Auto) Neut % (Auto) Lymph % (Auto) [place] % (Auto) Eos % (Auto) Baso % (Auto) Lymph # (Auto) [place] # (Auto) Eos # (Auto) Baso # (Auto) Abs Immat Gran (auto) Absolute Neuts (auto) Absolute Nucleated RBC Nucleated RBC % PT INR APTT Sodium Potassium Chloride Carbon Dioxide Anion Gap BUN Creatinine Estim Creat Clear Calc Estimated GFR Glucose Calcium Total Bilirubin 0.3 AST 28 Cancelled ALT 18 Cancelled Alkaline Phosphatase Cancelled Total Protein Albumin Beta HCG, Quant Blood Type Antibody Screen Crossmatch 03/12/25 03/12/25 03/12/25 15:05 15:05 15:05 WBC RBC Hgb Hct MCV MCH MCHC RDW Plt Count MPV Immature Gran % (Auto) Neut % (Auto) Lymph % (Auto) [place] % (Auto) Eos % (Auto) Baso % (Auto) Lymph # (Auto) [place] # (Auto) Eos # (Auto) Baso # (Auto) Abs Immat Gran (auto) Absolute Neuts (auto) Absolute Nucleated RBC Nucleated RBC % PT INR APTT Sodium Potassium Chloride Carbon Dioxide Anion Gap BUN Creatinine Estim Creat Clear Calc Estimated GFR > 60 Glucose 97 Cancelled Calcium 9.3 Cancelled Total Bilirubin Cancelled AST ALT Alkaline Phosphatase Total Protein Albumin Beta HCG, Quant Blood Type Antibody Screen Crossmatch 03/12/25 03/12/25 03/12/25 15:05 15:05 15:05 WBC RBC Hgb Hct MCV MCH MCHC RDW Plt Count MPV Immature Gran % (Auto) Neut % (Auto) Lymph % (Auto) [place] % (Auto) Eos % (Auto) Baso % (Auto) Lymph # (Auto) [place] # (Auto) Eos # (Auto) Baso # (Auto) Abs Immat Gran (auto) Absolute Neuts (auto) Absolute Nucleated RBC Nucleated RBC % PT INR APTT Sodium Potassium Chloride Carbon Dioxide Anion Gap BUN 7 D Creatinine 0.54 L Cancelled Estim Creat Clear Calc 124 Cancelled Estimated GFR Cancelled Glucose Calcium Total Bilirubin AST ALT Alkaline Phosphatase Total Protein Albumin Beta HCG, Quant Blood Type Antibody Screen Crossmatch 03/12/25 03/12/25 03/12/25 15:05 15:05 15:05 WBC RBC Hgb Hct MCV MCH MCHC RDW Plt Count MPV Immature Gran % (Auto) Neut % (Auto) Lymph % (Auto) [place] % (Auto) Eos % (Auto) Baso % (Auto) Lymph # (Auto) [place] # (Auto) Eos # (Auto) Baso # (Auto) Abs Immat Gran (auto) Absolute Neuts (auto) Absolute Nucleated RBC Nucleated RBC % PT INR APTT Sodium Potassium Chloride 105 Carbon Dioxide 25 Cancelled Anion Gap 9 Cancelled BUN Cancelled Creatinine Estim Creat Clear Calc Estimated GFR Glucose Calcium Total Bilirubin AST ALT Alkaline Phosphatase Total Protein Albumin Beta HCG, Quant Blood Type Antibody Screen Crossmatch 03/12/25 03/12/25 03/12/25 15:05 15:05 15:05 WBC 6.6 RBC 4.08 L Hgb 11.7 L Hct 34.8 L MCV 85.3 MCH 28.7 MCHC 33.6 RDW 12.4 Plt Count 217 MPV 11.1 H Immature Gran % (Auto) 0.3 Neut % (Auto) 68.6 Lymph % (Auto) 24.9 [place] % (Auto) 4.4 Eos % (Auto) 1.5 Baso % (Auto) 0.3 Lymph # (Auto) 1.65 [place] # (Auto) 0.3 Eos # (Auto) 0.1 Baso # (Auto) 0.0 Abs Immat Gran (auto) 0.02 Absolute Neuts (auto) 4.5 Absolute Nucleated RBC 0.000 Nucleated RBC % 0.0 PT 15.3 H INR 1.2 APTT 29.8 Sodium 139 Cancelled Potassium 3.8 Cancelled Chloride Cancelled Carbon Dioxide Anion Gap BUN Creatinine Estim Creat Clear Calc Estimated GFR Glucose Calcium Total Bilirubin AST ALT Alkaline Phosphatase Total Protein Albumin Beta HCG, Quant Blood Type Antibody Screen Crossmatch Discharge Plan Discharge Attending physician on discharge: Abran Clark Discharging Clinician: Abran Clark Patient Disposition: Home Activity: pelvic rest Diet: regular Discharge Instructions: Call or return if temperature above 100.4? F, increased abdominal pain, increased vaginal bleeding or any new problems. Patient Instructions: Dilation and Curettage (DC) Patient Language: [place] Stand Alone Forms: General Discharge Information Follow-up/Referrals: Coleman Belle MD [Physician, [employer] SAFETY INSPECTOR] - Call for Appointment Discharge Medications: New ibuprofen 600 mg tablet 600 mg PO Q6H PRN (Reason: cramps) Qty: 30 0RF ferrous sulfate 325 mg (65 mg iron) tablet,delayed release (DR/EC) 325 mg PO DAILY Qty: 30 0RF Continued No Home Medications Date of admission: 03/12/25 19:25 Primary Care Provider: Florecita Molina Admitting Provider: Abran Clark Attending physician on admission: Abran Clark Condition: Stable
== END 2025-03-13 12:52 | disposition home or self-care (01) ==
LOC: ANHED 14:21 → ANHIMU 19:27
PROVIDERS: Admitting Provider Obstetrics & Gynecology; PCP Obstetrics & Gynecology; Visit Provider Obstetrics & Gynecology
PROC: (CPT 59820; principal; 2025-03-12 20:00)
DX: O03.4 Incomplete spontaneous abortion without complication (principal); Z87.891 Personal history of nicotine dependence
CPT/HCPCS: 59820; 36415; 36430; 76801; 80053; 84702; 85014; 85018; 85025; 85610; 85730; 86850; 86900; 86901; 86923; 88305; 96360; 96361; 99285; A9270; G0378; J0675; J1100; J2003; J2250; J2405; J2704; J3010; J7030; J7050; J7120; P9016